=== PATIENT | male | born 1955 | race Caucasian/White ===

== ENCOUNTER 2024-05-02 05:06 | Emergency (ER) | payer OTHER ==
[2024-05-02] MEDS ORDERED: CEFTRIAXONE 1000 MG/VIAL ONE (05:58)
[2024-05-02] MEDS ORDERED: NA CHLORIDE 0.9% 1,000 ML ONE ×2 (05:58→08:27)
[2024-05-02 06:02] LABS: Absolute Lymphocytes (CBC) 0.7 K/uL (0.7-4.9); Absolute Monocytes 0.9 K/uL (0.1-1.3); Absolute Neutrophil 5.1 K/uL (1.8-8.0); Basophils % 0.5 % (0-1.3); Eosinophils % 0.1 % (0-4.4); Hematocrit 31.9 % (39.6-49.0); Hemoglobin 10.4 g/dL (13.6-17.9); Lymphocytes % 9.8 % (15.3-44.8); MCH 29.5 pg (27.0-35.0); MCHC 32.4 g/dL (32.0-36.0); MCV 90.9 fL (80-100); MPV 8.1 fL (7.6-11.3); Monocytes % 13.2 % (3.3-12.3); Neutrophils % 76.4 % (41.7-73.7); Platelets 288 thou/uL (152-406); RBC Red Blood Cell Count 3.51 M/uL (4.33-5.43); Red Cell Distribution Width 17.4 % (12.1-15.2)
[2024-05-02 06:13] LABS: PT Prothrombin Time 11.5 SECONDS (9.4-12.5); PTT, Activated Partial Thromb 32.1 SECONDS (24.3-36.9); Protime INR 1.03
[2024-05-02 06:22] LABS: Specific Gravity 1.011 (1.005-1.030); Sqamous Epithelial None Seen /HPF (None Seen); Urine Bacteria None Seen /HPF (<20); Urine Bilirubin NEGATIVE (Negative); Urine Blood 1+ (Negative); Urine Clarity Clear (Clear); Urine Color Light-Yellow (Yellow); Urine Culture Reflex Order NOT NEEDED; Urine Glucose NEGATIVE (Negative); Urine Ketones 1+ (Negative); Urine Micro Reflex YN NO BILL MICROSCOPIC; Urine Mucus Slight /HPF (None Seen); Urine Nitrite NEGATIVE (Negative); Urine Protein 1+ (Negative); Urine RBC 21-50 /HPF (None Seen); Urine Sperm Present (None Seen); Urine Urobilinogen Normal (Normal); Urine WBC <5 /HPF (<5); Urine pH 8.5 (5.0-7.0)
[2024-05-02 06:56] LABS: Albumin 3.3 g/dL (3.4-5.0); Albumin/Globulin Ratio 0.8 (1.1-1.8); Anion Gap 9.6 mEq/L (5.0-15.0); Bilirubin Total 0.8 mg/dL (0.2-1.0); Globulin 3.9 g/dL (2.3-3.5); Potassium 3.6 mEq/L (3.5-5.1); Protein, Total 7.2 g/dL (6.4-8.2)
[2024-05-02] MEDS ORDERED: NA CHLORIDE 0.9% 250 ML ONE ×2 (07:07→07:46)
[2024-05-02] MEDS ORDERED: PANTOPRAZOLE 40 MG INJ ONE (07:07)
[2024-05-02] MEDS ORDERED: LEVALBUTEROL 1.25 MG/3 ML NEB ONE (07:37)
[2024-05-02] MEDS ORDERED: METHYLPREDNISOLONE 125 MG INJ ONE (07:37)
[2024-05-02] MEDS ORDERED: AZITHROMYCIN 500 MG INJ IVPB ONE (07:46)
--- NOTE | 2024-05-02 07:53 | RAD REPORT ---
EXAM: CT Head Brain Wo Cont HISTORY: AMS COMPARISON: None TECHNIQUE: Multiple contiguous axial images were obtained for a CT of the brain without contrast. Sag ittal and coronal reformats were performed. One or more of the following dose reduction techniques were used: Automated exposure control, adjus tment of the mA and kV according to patient size, and iterative reconstruction. Unless otherwise specified, incidental findings do not require dedicated imaging follow-up. FINDINGS: Mild motion artifact somewhat limits evaluation. No evidence of hydrocephalus, intracranial hemorrhage, or extra-axial fluid collection. The brain is normal in morphology. The calvarium is intact. The visualized paranasal sinuses and mastoid air cells are essentially clear . IMPRESSION: No evidence of acute intracranial abnormality.
--- NOTE | 2024-05-02 08:11 | RAD REPORT ---
EXAMINATION: ONE VIEW CHEST XR CLINICAL INDICATION: Male, 69 years old.,COUGH TECHNIQUE: Frontal chest projection is submitted. Examination is limited by patient positioning and t echnique. COMPARISON: No prior exam. FINDINGS: Right basilar patchy airspace opacity obscuring the right hemidiaphragm margin. No pneumothorax or s izable effusion. The heart is normal in size. Mediastinal contours are unremarkable. IMPRESSION: Right basilar patchy airspace opacity, may reflect atelectasis or pneumonia.
--- NOTE | 2024-05-02 08:11 | RAD REPORT ---
EXAMINATION: CT Abdomen Pelvis W Contrast CLINICAL INDICATION: Male, 69 years old. ABD PAIN TECHNIQUE: CT abdomen and pelvis was performed, after the administration of IV contrast, [facility] Axial, sagittal and coronal reconstructions were obtained. One or more of the following dose reduction techniques were used: Automated exposure control, adjustment of the mA and k V according to patient size, and iterative reconstruction. Unless otherwise specified, incidental findings do not require dedicated imaging follow-up. COMPARISON: No prior exam. FINDINGS: Motion artifact somewhat limits evaluation. LOWER CHEST: Airspace opacification involving most of the dependent right lower lobe with air broncho grams. LIVER: Normal in size and contour. No focal lesion. BILIARY SYSTEM: No suspicious abnormalities. SPLEEN: Normal size. No focal lesion. PANCREAS: No mass, ductal dilation, or yulissa-pancreatic fluid. ADRENALS: Normal; no mass. KIDNEYS: Normal size and contour. No hydronephrosis. URINARY BLADDER: Unremarkable. GASTROINTESTINAL TRACT: Motion artifact especially in the upper abdomen limits evaluation. Mild gaseo us distention of upper abdominal small bowel. No bowel wall thickening. Moderate stool burden in the distal sigmoid and rectum. No evidence of free air, significant intra-abdominal free fluid, bowel obstruction or abscess. APPENDIX: Normal appendix. LYMPH NODES: No lymphadenopathy. MUSCULOSKELETAL: Bilateral hip arthroplasty hardware in place, which results in streak artifact limit ing evaluation of the pelvis. Healing or healed right sixth through ninth rib fractures. No other acute or suspicious osseous abnormality. ADDITIONAL FINDINGS: Mild fusiform aneurysmal dilation of the infrarenal abdominal aorta measuring 3. 2 cm in greatest caliber.. IMPRESSION: Airspace opacification of most of the dependent right lower lobe, may reflect atelectasis or airspace disease. Moderate stool burden in the distal sigmoid and rectum. Healing or healed right sixth through ninth rib fractures, correlate for focal pain. No other acute or concerning abnormalities seen in the abdomen or pelvis. Incidental findings as abov e.
--- NOTE | 2024-05-02 08:18 | ER ---
Nurse's Notes [facility] Name: Marco Mascorro Age: 69 yrs Sex: Male : 1955 Arrival Date: 05/02/2024 Time: 05:06 Bed 20 Private MD: Diagnosis: GI Bleed/ Gastrointestinal hemorrhage, unspecified;Pneumonia, unspecified organism;Altered mental status, unspecified Presentation: 05/02 05:10 Chief complaint: EMS states: the called he notice the patient upon waking up has rg5 symptoms of altered mental status, slower to response than usual. 05:10 Coronavirus screen: Client denies travel out of the [place] in the last 14 days. Ebola rg5 Screen: Patient negative for fever greater than or equal to 101.5 degrees Fahrenheit, and additional compatible Ebola Virus Disease symptoms Patient denies exposure to infectious person. Patient denies travel to an Ebola-affected area in the 21 days before illness onset. Ebola Screen: Patient negative for fever greater than or equal to 101.5 degrees Fahrenheit, and additional compatible Ebola Virus Disease symptoms Patient denies exposure to infectious person. Patient denies travel to an Ebola-affected area in the 21 days before illness onset. No symptoms or risks identified at this time. Initial Sepsis Screen: Does the patient meet any 2 criteria? No. Patient's initial sepsis screen is negative. Does the patient have a suspected source of infection? No. Patient's initial sepsis screen is negative. Risk Assessment: Do you want to hurt yourself or someone else? Patient reports no desire to harm self or others. Onset of symptoms was May 02, 2024. Care prior to arrival: Oxygen administered. via nasal cannula. 05:10 Method Of Arrival: EMS: [facility] rg5 05:10 Acuity: AUGUSTO 3 rg5 Triage Assessment: 05:10 General: Appears in no apparent distress. comfortable, Behavior is calm, cooperative. rg5 Pain: Denies pain. EENT: No deficits noted. Neuro: Level of Consciousness is awake, alert, Oriented to person. Historical: - Allergies: 05:10 No Known Allergies; rg5 - PMHx: 05:10 Chronic obstructive lung disease; rg5 - Immunization history:: Adult Immunizations unknown. - Infectious Disease History:: Denies. - Social history:: Smoking status: unknown. Screenin:[address] [facility] ED Fall Risk Assessment (Adult) History of falling in the last 3 months, rg5 including since admission No falls in past 3 months (0 pts) Confusion or Disorientation Yes (5 pts) Intoxicated or Sedated No (0 pts) Impaired Gait Yes (1 pt) Mobility Assist Device Used Yes (1 pt) Altered Elimination No (0 pt) Score/Fall Risk Level 3 or more points = High Risk Oriented to surroundings, Maintained a safe environment, Used ambulatory aids as needed (educated on \T\ assisted with). Abuse screen: Denies threats or abuse. Nutritional screening: No deficits noted. Tuberculosis screening: No symptoms or risk factors identified. Assessment: 05:10 General: Appears uncomfortable, Behavior is calm, cooperative. Pain: Denies pain. rg5 Neuro: Level of Consciousness is awake, alert, confused, Oriented to person, place. Cardiovascular: Heart tones S1 S2 Patient's skin is warm and dry. Rhythm is sinus rhythm with unifocal PVCs. Respiratory: Reports shortness of breath cough that is productive, Airway is patent Trachea midline Respiratory effort is even, Respiratory pattern is regular, symmetrical, Breath sounds are clear bilaterally. GI: Abdomen is round non-distended, Abd is soft and non tender. : No signs and/or symptoms were reported regarding the genitourinary system. EENT: No deficits noted. Derm: Skin is fragile, Skin is dry, Skin is normal. Musculoskeletal: Circulation, motion, and sensation intact. Range of motion:. 07:20 Reassessment: Patient appears in no apparent distress at this time. Patient and/or db family updated on plan of care and expected duration. Pain level reassessed. PATIENT RETURNED FROM CT. APPEARS ANXIOUS AND CONFUSED TRYING TO GET OUT OF BED. IS EASILY REDIRECTABLE. 08:01 General: Appears in no apparent distress. uncomfortable, Behavior is cooperative, db restless. Neuro: Level of Consciousness is awake, alert, obeys commands, confused, Oriented to person. 08:22 Reassessment: PT ATTEMPTING TO GET OUT OF BED. db 09:00 Derm: Rash noted that is on right leg and left leg. db 09:33 Reassessment: Patient and/or family updated on plan of care and expected duration. Pain db level reassessed. PT INCONTINENT OF STOOL AND INCONTINENT OF URINE. CHANGED PATIENT BRIEF, BED AND CLEANED PT. NOTED DARK SOFT STOOLS AND CLEAR URINE. 09:45 Reassessment: PT ATTEMPTED TO GET OUT OF BED. ASSISTED PT BACK IN BED. db 09:46 Reassessment: CALLED [facility] TO GIVE PT REPORT. db 09:51 Reassessment: REPORT GIVEN TO GLO AT [facility]. db 10:00 Reassessment: PATIENT ATTEMPTING TO GET OUT OF BED. STAFF AT BEDSIDE. db 10:15 Reassessment: Patient appears in no apparent distress at this time. Patient and/or db family updated on plan of care and expected duration. Pain level reassessed. EMS ARRIVAL FOR PATIENT TRANSPORT. 10:32 Reassessment: EMS ARRIVAL FOR PATIENT TRANSPORT. db 10:33 Reassessment: NOTED STOOL PRIOR TO TRANSPORT. PATIENT BRIEF CHANGED AND PATIENT CLEANED db PRIOR TO TRANSPORT. Vital Signs: 05:10 BP 151 / 116; Pulse 89; Resp 19; Temp 98.2(T); Pulse Ox 99% on 3 lpm NC; Weight 71.21 rg5 kg; Height 5 ft. 8 in. ; Pain 0/10; 06:05 BP 132 / 82; Pulse 94; Resp 19; Pulse Ox 100% on 3 lpm NC; Pain 0/10; rg5 07:20 BP 157 / 97; Pulse 103; Resp 18; Pulse Ox 96% on 2 lpm NC; db 08:05 BP 159 / 98; Pulse 127; Resp 24; Pulse Ox 96% on 2 lpm NC; db 09:15 Pulse 105; rn 09:39 BP 148 / 84; Pulse 101; Resp 24; Temp 97.8; Pulse Ox 97% on 2 lpm NC; db 10:00 BP 139 / 84; Pulse 103; Resp 16; Pulse Ox 100% on R/A; db 05:10 Body Mass Index 23.87 (71.21 kg, 172.72 cm) rg5 05:10 Pain Scale: Adult rg5 06:05 Pain Scale: Adult rg5 Berkley Coma Score: 07:20 Eye Response: spontaneous(4). Motor Response: obeys commands(6). Verbal Response: db confused(4). Total: 14. ED Course: 05:07 Patient arrived in ED. jj6 05:07 Ryley Maciel MD is Attending Physician. ec2 05:10 Arm band placed on right wrist. EKG completed in triage. Results shown to MD. rg5 05:10 Patient has correct armband on for positive identification. Fall risk band placed. rg5 Placed in gown. Bed in low position. Call light in reach. Side rails up X2. Client placed on continuous cardiac and pulse oximetry monitoring. NIBP monitoring applied. monitor tech on. Pulse ox on. Door closed. Noise minimized. Warm blanket given. Cleaned of incontinence. Linen changed. 05:10 No provider procedures requiring assistance completed. rg5 05:27 Ehsan Nunez, GAUDENCIO is Primary Nurse. rg5 05:30 First set of blood cultures drawn by me. oe 05:36 Chest Single View XRAY In Process Unspecified. EDMS 05:36 Triage completed. rg5 05:49 Second set of blood cultures drawn by me. oe 05:53 Inserted saline lock: 22 gauge in right forearm, using aseptic technique. Blood oe collected. Flushed with 10 mL NS. 05:57 AMMONIA Sent. oe 05:57 Type And Screen Sent. oe 05:58 Blood Culture Adult (2) Sent. oe 05:58 CBC with Diff Sent. oe 05:58 CMP Sent. oe 05:58 Lactate w/ 2H reflex if indic. Sent. oe 05:58 Protime (+inr) Sent. oe 05:58 Ptt, Activated Sent. oe 07:01 Attending Physician role handed off by Ryley Maciel MD rn 07:01 Juan Brambila MD is Attending Physician. rn 07:[address] via stretcher. db 07:16 CT Abd/Pelvis - IV Contrast Only In Process Unspecified. EDMS 07:16 CT Head Brain wo Cont In Process Unspecified. EDMS 07:56 Inserted saline lock: 22 gauge in left wrist, using aseptic technique. Flushed with 10 iw mL NS. 08:19 called [facility] for transfer talked to Augusto zambrano 09:04 Doc to Doc. sp 09:[address] Yee Green accepted pt to [facility] 0907 admin approval Augusto zambrano Room 733 report number [phone]. faxed demographics to Transfer Center. 10:35 Provided Education on: TRANSFER. db 10:35 Patient transferred, IV remains in place. db Administered Medications: 05:13 CANCELLED (Physician Discretion): [id number] mg PO once ec2 05:13 CANCELLED (Physician Discretion): [id number] mg PO once ec2 05:13 CANCELLED (Physician Discretion): [id number] mg IM once ec2 05:13 CANCELLED (Physician Discretion): [id number] mg PO once ec2 06:00 Drug: Rocephin IV 1 grams IV at calculated rate once; Given slow IV push per pharmacy rg5 instructions Route: IV; Rate: calculated rate; Site: right forearm; 10:38 Follow up: Response: No adverse reaction; IV Status: Completed infusion db 06:00 Drug: NS 0.9% IV 1000 ml IV at 1 bolus Per protocol; to be given as a bolus over 60 rg5 minutes Route: IV; Rate: 1 bolus; Site: right forearm; 07:00 Follow up: IV Status: Completed infusion; IV Intake: 1000ml rg5 07:36 Drug: Pantoprazole IVP 40 mg IVP once Route: IVP; Site: right wrist; db 10:38 Follow up: Response: No adverse reaction db 07:36 Drug: Pantoprazole IV 8 mg/hr IV at 25 ml/hr continuous; (Standard dilution is 80 mg in db 250 mL NS) Route: IV; Rate: 25 ml/hr; Site: right wrist; 10:38 Follow up: Response: No adverse reaction; IV Status: Infusion continued upon transfer db 07:45 Drug: Levalbuterol Inhalation 1.25 mg Inhalation once Route: Inhalation; db 07:45 Drug: Levalbuterol Inhalation 1.25 mg Inhalation once Route: Inhalation; db 07:55 Drug: Zithromax IVPB 500 mg IVPB once over 1 hrs; mix in 250 mL NS Route: IVPB; Infused db Over: 1 hrs; Site: left forearm; 08:55 Follow up: Response: No adverse reaction; IV Status: Completed infusion; IV Intake: db 250ml 07:56 Not Given (Duplicate Order): [id number] grams IV at calculated rate once; Given slow IV db push per pharmacy instructions 07:56 Drug: MethylPrednisoLONE IVP 125 mg IVP once Route: IVP; Site: right forearm; db 10:37 Follow up: Response: No adverse reaction db 10:37 Follow up: Response: No adverse reaction db 08:33 Drug: NS 0.9% IV 1000 ml IV at 1000 ml once; to be given as a bolus over 60 minutes db Route: IV; Rate: 1000 ml; Site: right forearm; 10:36 Follow up: Response: No adverse reaction; IV Status: Completed infusion; IV Intake: db 1000ml 10:32 Drug: Ipratropium Inhalation Aerosol 0.5 mg Inhalation once Route: Inhalation; db Medication: 05:10 VIS not applicable for this client. rg5 Intake: 07:00 IV: 1000ml; Total: 1000ml. rg5 08:55 IV: 250ml; Total: 1250ml. db 10:36 IV: 1000ml; Total: 2250ml. db Outcome: 08:18 ER care complete, transfer ordered by . rn 10:35 Transferred by ground EMS to [facility], [facility] [place], Transfer form completed. db X-rays sent w/ patient. 10:35 Condition: stable 10:35 Instructed on the need for transfer, 10:52 Patient left the ED. db Signatures: Dispatcher [employer] EDMS Bre Lassiter Irene RN GAUDENCIO iw Juan Brambila MD MD rn Espinosa, Orlando oe Jeffries, Jennifer [id number] Kelsey Pollock RN RN db Corral, Edwin, MD MD ec2 Ehsan Nunez, GAUDENCIO RN rg5 Corrections: (The following items were deleted from the chart) 08:02 07:20 Reassessment: Patient appears in no apparent distress at this time. Patient db and/or family updated on plan of care and expected duration. Pain level reassessed. PATIENT RETURNED FROM CT. APPEARS ANXIOUS AND CONFUSED TRYING TO GET OUT OF BED. IS EASILY REDIRECTABLE. db
--- NOTE | 2024-05-02 08:19 | EDPHYS ---
Physician Documentation [facility] Name: Marco Mascorro Age: 69 yrs Sex: Male : 1955 Arrival Date: 05/02/2024 Time: 05:06 Bed 20 Private MD: ED Physician Juan Brambila HPI: 05/02 05:18 This 69 yrs old Male presents to ER via Unassigned with complaints of Altered ec2 Mental Status. 05:18 Patient arrives today for evaluation of altered mental status. Patient arrives from 2 home. EMS reports that on scene had noted patient be increasingly altered. No recent falls injuries or trauma. Patient with history of COPD on baseline oxygen requirement.. Historical: - Allergies: 05:10 No Known Allergies; rg5 - PMHx: 05:10 Chronic obstructive lung disease; rg5 - Immunization history:: Adult Immunizations unknown. - Infectious Disease History:: Denies. - Social history:: Smoking status: unknown. ROS: 05:18 Constitutional: as per hpi ec2 Exam: 05:18 Constitutional: GEN: NAD Head: atraumatic Eyes: EOMI Ears: External ears are ec2 normal. CV: regular rate LUNGS: no respiratory distress ABD: non-distended, soft, not guarding, slightly tenderSKIN: no evidence of rashes MSK: no evidence of trauma Vital Signs: 05:10 BP 151 / 116; Pulse 89; Resp 19; Temp 98.2(T); Pulse Ox 99% on 3 lpm NC; Weight 71.21 rg5 kg; Height 5 ft. 8 in. ; Pain 0/10; 06:05 BP 132 / 82; Pulse 94; Resp 19; Pulse Ox 100% on 3 lpm NC; Pain 0/10; rg5 07:20 BP 157 / 97; Pulse 103; Resp 18; Pulse Ox 96% on 2 lpm NC; db 08:05 BP 159 / 98; Pulse 127; Resp 24; Pulse Ox 96% on 2 lpm NC; db 09:15 Pulse 105; rn 09:39 BP 148 / 84; Pulse 101; Resp 24; Temp 97.8; Pulse Ox 97% on 2 lpm NC; db 10:00 BP 139 / 84; Pulse 103; Resp 16; Pulse Ox 100% on R/A; db 05:10 Body Mass Index 23.87 (71.21 kg, 172.72 cm) rg5 05:10 Pain Scale: Adult rg5 06:05 Pain Scale: Adult rg5 [place] Coma Score: 07:20 Eye Response: spontaneous(4). Motor Response: obeys commands(6). Verbal Response: db confused(4). Total: 14. MDM: 05:07 Medical Screening Exam initiated ec2 05:18 Data reviewed: vital signs, nurses notes. ED course: Patient arrives today for altered ec2 mental status. Examination yields nontoxic cooperative individual is otherwise in no acute distress. Will obtain lab test, urine studies, chest x-ray.. 06:49 ED course: The patient noted to have black melanic stool on rectal examination.. ec2 06:50 ED course: Will sign patient out to oncoming physician with pending imaging and ec2 reassessment.. 06:50 Transition of care: After a detail discussion of the patient's case, care is ec2 transferred to Juan Brambila MD. 07:01 Differential Diagnosis altered mental status, GI bleed, anemia, dehydration, rn electrolyte disorder. Differential Diagnosis: CVA, electrolyte abnormality, hypoglycemia, intracranial bleed, UTI, volume depletion. ED course: Pt signed out to me by Dr. Maciel, pending CT head and abd/pelvis for AMS. States patient has melena and GI bleed. Protonix added. Imaging pending. No GI here, anticipate transfer. . 08:17 Counseling: I had a detailed discussion with the patient and/or guardian regarding the rn historical points, exam findings, and any diagnostic results supporting the discharge/admit diagnosis, lab results, radiology results, the need to transfer to another facility, for higher level of care, [facility] does not immediately have the required specialist. 08:31 ED course: Patient has had 2 melanotic stools while here. Chest x-ray and CT imaging rn reveals right lower lobe infiltrate per my interpretation. Antibiotics ordered after sepsis order set obtained. Started on Protonix and fluids. Will transfer given no GI here. 08:32 ED course: I personally spent 35 minutes engaged in work directly related to the rn individual patient's care. This does not include any time spent performing procedures. The patient has been deemed critically ill because of management of GI bleed in setting of pneumonia and COPD, abnormal vital signs requiring fluid resuscitation, respiratory distress requiring nebulizer treatments and IV steroids, as well as organization of transfer.. 05/02 05:08 Order name: Blood Culture Adult (2) ec2 05/02 05:08 Order name: CBC with Diff; Complete Time: 06:05 ec2 05/02 05:08 Order name: CMP; Complete Time: 06:57 ec2 05/02 05:08 Order name: Lactate w/ 2H reflex if indic.; Complete Time: 06:22 ec2 05/02 05:08 Order name: Protime (+inr); Complete Time: 06:20 ec2 05/02 05:08 Order name: Ptt, Activated; Complete Time: 06:20 ec2 05/02 05:35 Order name: Type And Screen; Complete Time: 06:45 ec2 05/02 05:35 Order name: AMMONIA; Complete Time: 06:20 ec2 05/02 06:00 Order name: UAM; Complete Time: 06:28 ec2 05/02 06:15 Order name: Glucose, Ancillary Testing; Complete Time: 06:20 EDMS 05/02 05:08 Order name: Chest Single View XRAY; Complete Time: 08:16 ec2 05/02 05:36 Order name: CT Abd/Pelvis - IV Contrast Only; Complete Time: 08:16 ec2 05/02 06:13 Order name: CT Head Brain wo Cont; Complete Time: 08:16 ec2 05/02 05:08 Order name: Accucheck; Complete Time: 06:05 ec2 05/02 05:08 Order name: Cardiac monitoring; Complete Time: 06:05 ec2 05/02 05:08 Order name: EKG - Nurse/Tech; Complete Time: 06:05 ec2 05/02 05:08 Order name: IV Saline Lock - Large Bore; Complete Time: 05:57 ec2 05/02 05:08 Order name: Labs collected and sent; Complete Time: 05:58 ec2 05/02 05:08 Order name: O2 Per Protocol; Complete Time: 06:05 ec2 05/02 05:08 Order name: O2 Sat Monitoring; Complete Time: 06:05 ec2 05/02 05:08 Order name: Vital Signs; Complete Time: 06:05 ec2 Administered Medications: 05:13 CANCELLED (Physician Discretion): [id number] mg PO once ec2 05:13 CANCELLED (Physician Discretion): [id number] mg PO once ec2 05:13 CANCELLED (Physician Discretion): [id number] mg IM once ec2 05:13 CANCELLED (Physician Discretion): [id number] mg PO once ec2 06:00 Drug: Rocephin IV 1 grams IV at calculated rate once; Given slow IV push per pharmacy rg5 instructions Route: IV; Rate: calculated rate; Site: right forearm; 10:38 Follow up: Response: No adverse reaction; IV Status: Completed infusion db 06:00 Drug: NS 0.9% IV 1000 ml IV at 1 bolus Per protocol; to be given as a bolus over 60 rg5 minutes Route: IV; Rate: 1 bolus; Site: right forearm; 07:00 Follow up: IV Status: Completed infusion; IV Intake: 1000ml rg5 07:36 Drug: Pantoprazole IVP 40 mg IVP once Route: IVP; Site: right wrist; db 10:38 Follow up: Response: No adverse reaction db 07:36 Drug: Pantoprazole IV 8 mg/hr IV at 25 ml/hr continuous; (Standard dilution is 80 mg in db 250 mL NS) Route: IV; Rate: 25 ml/hr; Site: right wrist; 10:38 Follow up: Response: No adverse reaction; IV Status: Infusion continued upon transfer db 07:45 Drug: Levalbuterol Inhalation 1.25 mg Inhalation once Route: Inhalation; db 07:45 Drug: Levalbuterol Inhalation 1.25 mg Inhalation once Route: Inhalation; db 07:55 Drug: Zithromax IVPB 500 mg IVPB once over 1 hrs; mix in 250 mL NS Route: IVPB; Infused db Over: 1 hrs; Site: left forearm; 08:55 Follow up: Response: No adverse reaction; IV Status: Completed infusion; IV Intake: db 250ml 07:56 Not Given (Duplicate Order): [email or web address] grams IV at calculated rate once; Given slow IV db push per pharmacy instructions 07:56 Drug: MethylPrednisoLONE IVP 125 mg IVP once Route: IVP; Site: right forearm; db 10:37 Follow up: Response: No adverse reaction db 10:37 Follow up: Response: No adverse reaction db 08:33 Drug: NS 0.9% IV 1000 ml IV at 1000 ml once; to be given as a bolus over 60 minutes db Route: IV; Rate: 1000 ml; Site: right forearm; 10:36 Follow up: Response: No adverse reaction; IV Status: Completed infusion; IV Intake: db 1000ml 10:32 Drug: Ipratropium Inhalation Aerosol 0.5 mg Inhalation once Route: Inhalation; db Disposition: 08:32 Critical Care:. rn Disposition Summary: 05/02/24 08:18 Transfer Ordered Notes: Transfer Location: Other [facility] rn Reason: Higher level of care rn Condition: Stable rn Problem: new rn Symptoms: are unchanged rn Accepting Physician: (05/02/24 10:52) db Diagnosis - GI Bleed/ Gastrointestinal hemorrhage, unspecified rn - Pneumonia, unspecified organism rn - Altered mental status, unspecified rn Forms: - Medication Reconciliation Form rn - SBAR form consultant internship time excluding procedures: 08:32 Critical care time: Bedside Care: 35 minutes. Total time: 35 minutes rn Signatures: Dispatcher [employer] EDMS Juan Brambila MD MD rn Benton, Danielle, RN RN db Corral, Edwin, MD MD ec2 Ehsan Nunez RN RN rg5 Corrections: (The following items were deleted from the chart) 05:09 05:08 BLOOD CULTURE*+BA.LAB.BRZ ordered. EDMS EDMS 05:09 05:08 CBC+H.LAB.BRZ ordered. EDMS EDMS 05:09 05:08 COMPREHENSIVE METABOLIC PANEL+C.LAB.BRZ ordered. EDMS EDMS 05:09 05:08 LACTATE+C.LAB.BRZ ordered. EDMS EDMS 05:09 05:08 PROTIME (+INR)+COAG.LAB.BRZ ordered. EDMS EDMS 05:09 05:08 PTT, ACTIVATED+COAG.LAB.BRZ ordered. EDMS EDMS 05:09 05:09 Chest Single View+RAD.RAD.BRZ ordered. EDMS EDMS 05:13 05:13 Acetaminophen PO 1000 mg PO once ordered. ec2 ec2 05:13 05:13 Methocarbamol PO 750 mg PO once ordered. ec2 ec2 05:13 05:13 Ketorolac IM 30 mg IM once ordered. ec2 ec2 05:13 05:13 predniSONE PO 40 mg PO once ordered. ec2 ec2 05:13 05:13 Arnoldo wrap-joint ordered. ec2 ec2 05:35 05:35 TYPE AND SCREEN+BB.LAB.BRZ ordered. EDMS EDMS 05:35 05:35 AMMONIA+C.LAB.BRZ ordered. EDMS EDMS 05:36 05:13 Knee Right 3 View+RAD.RAD.BRZ ordered. EDMS EDMS 05:36 05:36 Abdomen Pelvis W Con+CT.RAD.BRZ ordered. EDMS EDMS 05:36 05:18 Constitutional: GEN: NAD Head: atraumatic Eyes: EOMI Ears: External ears are ec2 normal. CV: regular rate LUNGS: no respiratory distress ABD: non-distended, soft, nontender, guarding, not rigid SKIN: no evidence of rashes MSK: no evidence of trauma ec2 07:00 05:17 Hendricks ordered. ec2 rg5 10:52 08:18 Dr. granda db
[2024-05-02] MEDS ORDERED: NA CHLORIDE 0.9% 500 ML ONE (09:10)
[2024-05-02] MEDS ORDERED: IPRATROPIUM BROM 0.5MG/2.5ML ONE (10:30)
[2024-05-04 16:00] VITALS: BP 139/84; TEMP 97.8; O2SAT 100
--- NOTE | 2024-05-06 12:12 | EKG ---
Test Date: 2024-05-02 Test Time: 05:54:25 Energy Conservation Technician: SONY MEASUREMENT RESULTS: Intervals: Rate: 98 UT: 168 QRSD: 104 QT: 396 QTc: 505 [place]: P: 68 UT: 168 QRS: 53 T: 81 INTERPRETIVE STATEMENTS: Sinus rhythm with premature supraventricular complexes with occasional premature ventricular complexes Prolonged QT Abnormal ECG No previous ECG available for comparison Electronically Signed On 05-06-24 12:08:57 RADAR SCIENTIST by Oziel Mortensen
== END 2024-05-02 10:52 | disposition short-term general hospital (02) ==
LOC: ER 05:06 → EDBD 05:06 → ER 10:52
DX: K92.2 Gastrointestinal hemorrhage, unspecified (principal); J18.9 Pneumonia, unspecified organism; R41.82 Altered mental status, unspecified; J44.9 Chronic obstructive pulmonary disease, unspecified
CPT/HCPCS: 93005; 87040 ×2; 85025; 81001; 36415; 82140; 86900; 86850; 85610; 86901; 82947; 83605; 85730; 80053; 70450; 74177; 71045; 99285; Q9967; J7614; J7644; J2470; J2919; J7050 ×2; J7040; J7030 ×2; J0696

== ENCOUNTER 2024-05-13 10:05 | Inpatient (IN) | payer OTHER ==
[2024-05-13] MEDS ORDERED: MORPHINE 4 MG/ML SYR ONE (10:16)
--- NOTE | 2024-05-13 11:08 | RAD REPORT ---
EXAMINATION: CT HEAD WITHOUT CONTRAST CT CERVICAL SPINE WITHOUT CONTRAST CLINICAL INDICATION: Head and neck injury status post fall. Head and neck pain TECHNIQUE: Axial CT images from the skull base to the vertex without intravenous contrast. Axial CT i mages through the cervical spine were obtained without intravenous contrast. Sagittal and coronal reformatted images were created from the data set. Coronal and sagittal reformatted images were creat ed from the data set. One or more of the following dose reduction techniques were used: Automated exposure control, adjustment of the mA and/or kV according to patient size, and/or iterative reconstr uction. Unless otherwise specified, incidental findings do not require dedicated imaging follow-up. [id number]. Comparison: May 03, [address] FINDINGS: An intracranial bleed is not seen. Ventricles are normal in caliber. No significant hypodensity within the brain No extra-axial fluid collection. No fluid within the sinuses/mastoids No fracture or dislocation is seen involving the cervical spine. Mild to moderate anterior subluxation C3 on C4. Significant soft tissue swelling not seen. Although t his is probably chronic this cannot be said with certainty adenosis prior exams are not available for comparison. IMPRESSION: No acute intracranial abnormality noted A cervical fracture is not seen. Mild to moderate anterior subluxation C3 on C4. Significant soft tissue swelling not seen. If the patient has clinical symptoms to suggest an acute ligamentous injury of the upper cervical spi ne MRI would be recommended.
--- NOTE | 2024-05-13 11:08 | RAD REPORT ---
EXAM: CT CHEST, ABDOMEN AND PELVIS WITHOUT CONTRAST CLINICAL INDICATION: Chest and abdominal pain status post fall TECHNIQUE: CT chest, abdomen and pelvis was performed, without IV contrast, as per department protoco l. Axial, sagittal and coronal reconstructions were obtained. One or more of the following dose reduction techniques were used: Automated exposure control, adjustment of the mA and/or kV according to the patient size, and/or iterative reconstruction. Unless otherwise specified, incidental findings do not require dedicated imaging follow-up. The lack of IV and oral contrast limits evaluation of the mediastinum, ratna, vessels, organs and dipti l. COMPARISON: May 02, 2024 CT abdomen FINDINGS: Fractures involving the left third through 10th ribs. Most of the fractures are mildly displaced. No pneumothorax Small left pleural effusion. No pulmonary contusion. No mediastinal hematoma. Right lower lobe consolidation was partially imaged on the prior CT. It is moderate in size. Mild rig ht upper lobe opacities. These probably represent pneumonia. Multiple subacute right rib fractures again demonstrated. Liver, spleen, pancreas, adrenals kidneys and bladder do not demonstrate a acute traumatic injury. Artifact from bilateral hip prosthesis obscures evaluation of portions of the pelvis. There is no evidence of diverticulitis 3.2 cm abdominal aortic aneurysm unchanged. Follow-up imaging in 3 years recommended. Right inguinal hernia repair Hepatic and splenic granulomata IMPRESSION: Mostly mildly displaced fractures involving the left third through 10th ribs. Right lung pneumonia. This should be followed until has cleared to help exclude a postobstructive pro cess/underlying mass
[2024-05-13] MEDS ORDERED: Levofloxacin 750mg IV 750 MG/150 ML BAG IV ONE (12:40)
[2024-05-13 12:44] LABS: Absolute Lymphocytes (CBC) 0.2 K/uL (0.7-4.9); Absolute Monocytes 0.7 K/uL (0.1-1.3); Absolute Neutrophil 5.5 K/uL (1.8-8.0); Basophils % 0.1 % (0-1.3); Hematocrit 30.8 % (39.6-49.0); Hemoglobin 10.2 g/dL (13.6-17.9); Lymphocytes % 3.3 % (15.3-44.8); MCH 30.4 pg (27.0-35.0); MCHC 33.1 g/dL (32.0-36.0); MCV 91.6 fL (80-100); MPV 8.1 fL (7.6-11.3); Monocytes % 10.7 % (3.3-12.3); Neutrophils % 85.9 % (41.7-73.7); Platelets 158 thou/uL (152-406); RBC Red Blood Cell Count 3.36 M/uL (4.33-5.43); Red Cell Distribution Width 16.5 % (12.1-15.2)
[2024-05-13 12:47] LABS: PT Prothrombin Time 10.3 SECONDS (9.4-12.5); PTT, Activated Partial Thromb 30.4 SECONDS (24.3-36.9); Protime INR 0.98
[2024-05-13 12:52] LABS: Albumin 3.1 g/dL (3.4-5.0); Albumin/Globulin Ratio 0.9 (1.1-1.8); Anion Gap 4.4 mEq/L (5.0-15.0); Bilirubin Total 0.3 mg/dL (0.2-1.0); Globulin 3.5 g/dL (2.3-3.5); Potassium 4.4 mEq/L (3.5-5.1); Protein, Total 6.6 g/dL (6.4-8.2)
[2024-05-13 13:21] LABS: Blood Morphology Comment NOT SEEN (NOT SEEN); Platelet Estimate ADEQ; White Blood Cell Scan OK (OK)
--- NOTE | 2024-05-13 13:44 | P.HP ---
Certification for Inpatient Patient admitted to: Observation With expected LOS: <2 Midnights Practitioner: I am a practitioner with admitting privileges, knowledge of patient current condition, hospital course, and medical plan of care. Services: Services provided to patient in accordance with Admission requirements found in Title 42 Section 412.3 of the Code of Federal Regulations Patient History Date of Service: 05/13/24 Reason for admission: Multiple rib fractures, right sided PNA History of Present Illness: Marco Mascorro is a 69 year old male with Pmhx COPD on 4-5 LNC who reports tripping over his walker falling on his left side. On evaluation, Marco is extremely uncomfortable, requesting pain medication for his left rib fractures, Vital signs stable, on 3 LNC, gurgling lung sounds. CT CAP reports mildly displaced fractures to left third through tenth ribs. Laboratory evaluation significant for sodium 131, bicarb 35, serum glucose 108 Initial vitals BP 138 / 70; Pulse 90; Resp 14; Temp 98.2; Pulse Ox 96% on [address] CAP reports "Mostly mildly displaced fractures involving the left third through 10th ribs. Right lung pneumonia. This should be followed until has cleared to help exclude a postobstructive process/underlying mass, Small left pleural effusion." CT head/cervical spine reports "No acute intracranial abnormality noted. A cervical fracture is not seen. Mild to moderate anterior subluxation C3 on C4. Significant soft tissue swelling not seen." Marco will be admitted to hospitalist service for further evaluation and treatment, Dr. Albarado consulted. Allergies No Known Allergies Allergy (Unverified 05/13/24 17:59) - Past Medical/Surgical History -: COPD Past Surgical History: Unable to obtain - Family History Family History: Reviewed- Non-Contributory - Social History Smoking Status: Current some day smoker Alcohol use: No CD- Drugs: No Review of Systems Musculoskeletal: Other (left ribs) Physical Examination - Physical Exam General: Alert, Oriented x3, Other (uncomfortable) HEENT: Atraumatic, Normocephalic Neck: Supple, 2+ carotid pulse no bruit Respiratory: Clear to auscultation bilaterally, Normal air movement Cardiovascular: Normal pulses, Regular rate/rhythm, Normal S1 S2 Capillary refill: <2 Seconds Gastrointestinal: Normal bowel sounds, Soft and benign Musculoskeletal: No clubbing Integumentary: No rashes Neurological: Normal speech, Normal tone - Studies Laboratory Data (last 24 hrs) 05/13/24 05/13/24 05/13/24 12:20 12:20 12:20 WBC 6.40 Hgb 10.2 L Hct 30.8 L Plt Count 158 PT 10.3 INR 0.98 APTT 30.4 Sodium 131 L Potassium 4.4 BUN 12 Creatinine 0.41 L Glucose 108 H Total Bilirubin 0.3 AST 29 ALT 21 Alkaline Phosphatase 83 Assessment and Plan - Plan Assessment and Plan Trauma mechanical fall Left rib fracture 3-10 Right sided pneumonia Small left pleural effusion -CT CAP reports "Mostly mildly displaced fractures involving the left third through 10th ribs. Right lung pneumonia. This should be followed until has cleared to help exclude a postobstructive process/underlying mass, Small left pleural effusion." -CT head/cervical spine reports "No acute intracranial abnormality noted. A cervical fracture is not seen. Mild to moderate anterior subluxation C3 on C4. Significant soft tissue swelling not seen." - pain control -supportive care -Dr. Albarado consulted -levaquin daily -Lasix x 1 Hyponatremic -NA 131 -Lasix x1, monitor in AM labs COPD -continue home medications -Duonebs -Oxygen protocol in place 3.2 abdominal aortic aneurysm Right inguinal hernia -Findings on CT CAP -reports aneurysm unchanged DVT ppx SCD full code LOS 2-3 days Discharge Plan: Home Plan to discharge in: 48 Hours - Advance Directives Does patient have a Living Will: No Does patient have a Durable POA for Healthcare: No
--- NOTE | 2024-05-13 13:46 | EDPHYS ---
Physician Documentation [facility] Name: Marco Mascorro Age: 69 yrs Sex: Male : 1955 Arrival Date: 05/13/2024 Time: 10:05 Bed 16 Private MD: ED Physician Dejuan Marshall HPI: 05/13 14:42 This 69 yrs old Male presents to ER via EMS with complaints of Fall Injury. rt 14:42 Patient presents to the ED with mechanical fall. Patient tripped on his walker causing rt to fall hitting the left side of his ribs. Reports pain to that area. Denies hitting his head or loss of consciousness. The patient reports having a cough, shortness of breath for the past few days. Denies other acute complaints at this time, symptoms are moderate in severity, no other aggravating or alleviating factors.. Historical: - Allergies: 10:13 No Known Allergies; bp - PMHx: 10:13 Chronic obstructive lung disease; bp - Immunization history:: Adult Immunizations up to date. - Infectious Disease History:: Denies. - Social history:: Smoking status: unknown. - Family history:: not pertinent. ROS: 14:42 Constitutional: Negative for fever, chills, and weight loss, Abdomen/GI: Negative for rt abdominal pain, nausea, vomiting, diarrhea, and constipation, MS/Extremity: Negative for injury and deformity, Skin: Negative for injury, rash, and discoloration, Neuro: Negative for headache, weakness, numbness, tingling, and seizure, 14:42 Cardiovascular: Positive for chest pain, Negative for edema, 14:42 Respiratory: Positive for cough, shortness of breath, Exam: 14:42 Constitutional: This is a well developed, well nourished patient who is awake, alert, rt and in no acute distress. Head/Face: Normocephalic, atraumatic. Cardiovascular: Regular rate and rhythm with a normal S1 and S2. No gallops, murmurs, or rubs. Normal PMI, no JVD. No pulse deficits. Respiratory: Lungs have equal breath sounds bilaterally, clear to auscultation and percussion. No rales, rhonchi or wheezes noted. No increased work of breathing, no retractions or nasal flaring. Abdomen/GI: Soft, non-tender, with normal bowel sounds. No distension or tympany. No guarding or rebound. No evidence of tenderness throughout. Skin: Warm, dry with normal turgor. Normal color with no rashes, no lesions, and no evidence of cellulitis. MS/ Extremity: Pulses equal, no cyanosis. Neurovascular intact. Full, normal range of motion. Neuro: Awake and alert, GCS 15, oriented to person, place, time, and situation. Cranial nerves II-XII grossly intact. Motor strength 5/5 in all extremities. Sensory grossly intact. Cerebellar exam normal. Normal gait. 14:42 Chest/axilla: Tenderness over the left lateral rib margins, no crepitus felt. 14:42 ECG was reviewed by the Attending Physician. Vital Signs: 10:12 BP 138 / 70; Pulse 90; Resp 14; Temp 98.2; Pulse Ox 96% on 3 lpm NC; bp 13:10 BP 156 / 92; Pulse 94; Resp 16; Pulse Ox 94% ; bp 17:00 BP 155 / 89; Pulse 85; Resp 18; Temp 98.5; Pulse Ox 95% on 2 lpm NC; bp MDM: 10:10 Medical Screening Exam initiated rt 14:42 Differential Diagnosis Rib fractures, rib contusion, pneumonia, pulmonary contusion. rt Data reviewed: vital signs, nurses notes, lab test result(s), EKG, radiologic studies. Consideration of Admission/Observation Patient was admitted/placed on observation. Management of patient was discussed with the following: Hospitalist: Agrees to admit. I considered the following discharge prescriptions or medication management in the emergency department Medications were administered in the Emergency Department. See MAR. Independent interpretation of the following test(s) in the Emergency Department CT Scan: My interpretation is Consolidation seen on interpretation of CT scan images. Test considered but Not performed: X-ray: CTs obtained, x-rays are redundant. Care significantly affected by the following chronic conditions: Chronic Obstructive Pulmonary Disease. Counseling: I had a detailed discussion with the patient and/or guardian regarding the historical points, exam findings, and any diagnostic results supporting the discharge/admit diagnosis, lab results, radiology results, the need for further work-up and treatment in the hospital. Response to treatment: the patient's symptoms have mildly improved after treatment. 05/13 11:31 Order name: Blood Culture Adult (2) rt 05/13 11:31 Order name: CBC with Diff; Complete Time: 13:39 rt 05/13 11:31 Order name: CMP; Complete Time: 13:05 rt 05/13 11:31 Order name: Lactate w/ 2H reflex if indic.; Complete Time: 13:05 rt 05/13 11:31 Order name: Protime (+inr); Complete Time: 13:05 rt 05/13 11:31 Order name: Ptt, Activated; Complete Time: 13:05 rt 05/13 13:22 Order name: CBC Smear Scan; Complete Time: 13:39 EDMS 05/13 15:09 Order name: Urinalysis w/ reflexes EDMS 05/13 15:09 Order name: Basic Metabolic Panel EDMS 05/13 15:09 Order name: Basic Metabolic Panel EDMS 05/13 15:09 Order name: Basic Metabolic Panel EDMS 05/13 15:09 Order name: Basic Metabolic Panel EDMS 05/13 15:09 Order name: Basic Metabolic Panel EDMS 05/13 15:09 Order name: Basic Metabolic Panel EDMS 05/13 15:09 Order name: Basic Metabolic Panel EDMS 05/13 15:09 Order name: Basic Metabolic Panel EDMS 05/13 15:09 Order name: CBC with Automated Diff EDMS 05/13 15:09 Order name: CBC with Automated Diff EDMS 05/13 15:09 Order name: CBC with Automated Diff EDMS 05/13 15:09 Order name: CBC with Automated Diff EDMS 05/13 15:09 Order name: CBC with Automated Diff EDMS 05/13 15:09 Order name: CBC with Automated Diff EDMS 05/13 15:09 Order name: CBC with Automated Diff EDMS 05/13 15:09 Order name: CBC with Automated Diff EDMS 05/13 15:09 Order name: Magnesium EDMS 05/13 15:09 Order name: Magnesium EDMS 05/13 15:09 Order name: Magnesium EDMS 05/13 15:09 Order name: Magnesium EDMS 05/13 15:10 Order name: Magnesium EDMS 05/13 15:10 Order name: Magnesium EDMS 05/13 15:10 Order name: Magnesium EDMS 05/13 15:10 Order name: Magnesium EDMS 05/13 15:10 Order name: Phosphorus EDMS 05/13 15:10 Order name: Phosphorus EDMS 05/13 15:10 Order name: Phosphorus EDMS 05/13 15:10 Order name: Phosphorus EDMS 05/13 15:10 Order name: Phosphorus EDMS 05/13 15:10 Order name: Phosphorus EDMS 05/13 15:10 Order name: Phosphorus EDMS 05/13 15:10 Order name: Phosphorus EDMS 05/13 10:10 Order name: CT Head C Spine; Complete Time: 11:10 rt 05/13 10:10 Order name: CT Chest Abdomen Pelvis W/O Contrast; Complete Time: 11:10 rt 05/13 11:31 Order name: INCENTIVE SPIROMETRY rt 05/13 11:31 Order name: EKG; Complete Time: 11:32 rt 05/13 11:31 Order name: Accucheck; Complete Time: 11:41 rt 05/13 11:31 Order name: Cardiac monitoring; Complete Time: 11:41 rt 05/13 11:31 Order name: EKG - Nurse/Tech; Complete Time: 13:10 rt 05/13 11:31 Order name: IV Saline Lock - Large Bore; Complete Time: 11:41 rt 05/13 11:31 Order name: Labs collected and sent; Complete Time: 12:20 rt 05/13 11:31 Order name: O2 Per Protocol; Complete Time: 11:41 rt 05/13 11:31 Order name: O2 Sat Monitoring; Complete Time: 11:40 rt 05/13 11:31 Order name: Vital Signs; Complete Time: 11:40 rt EC:42 Rate is 95 beats/min. Rhythm is regular, Normal Sinus Rhythm with No ectopy. QRS Hydro rt is Normal. AR interval is normal. QRS interval is normal. QT interval is prolonged at 545 msec. No Q waves. Clinical impression: NSR w/ Non-specific ST/T Changes. Administered Medications: 10:18 Drug: morphine IM 4 mg IM once Route: IM; Site: affected area; bp 11:40 Follow up: Response: No adverse reaction bp 12:15 Drug: LevaQUIN IVPB 750 mg IVPB once Route: IVPB; Site: left forearm; bp 17:07 Follow up: IV Status: Completed infusion bp Disposition Summary: 05/13/24 13:45 Hospitalization Ordered Notes: Hospitalization Status: Inpatient Admission rt Provider: Michael Yates rt Location: Telemetry/MedSur (Inpatient) rt Condition: Stable rt Problem: new rt Symptoms: have improved rt Bed/Room Type: Standard rt Room Assignment: 206(05/13/24 17:01) em1 Diagnosis - Multiple left-sided rib fractures rt - Community-acquired pneumonia rt Forms: - Medication Reconciliation Form rt - SBAR form rt - Leadership Thank You Letter rt Signatures: Dispatcher [employer] JOAQUINPeewee Nieto em1 Brian Cespedes, RN RN bp Dejuan Marshall MD MD rt Corrections: (The following items were deleted from the chart) 11:32 11:32 BLOOD CULTURE*+BA.LAB.BRZ ordered. EDMS EDMS 11:32 11:32 CBC+H.LAB.BRZ ordered. EDMS EDMS 11:32 11:32 COMPREHENSIVE METABOLIC PANEL+C.LAB.BRZ ordered. EDMS EDMS 11:32 11:32 LACTATE+C.LAB.BRZ ordered. EDMS EDMS 11:32 11:32 PROTIME (+INR)+COAG.LAB.BRZ ordered. EDMS EDMS 11:32 11:32 PTT, ACTIVATED+COAG.LAB.BRZ ordered. EDMS EDMS 16:28 13:45 rt em1 16:34 16:28 em1 em1 17:01 16:34 em1 em1
--- NOTE | 2024-05-13 13:46 | ER ---
Nurse's Notes [facility] Name: Marco Mascorro Age: 69 yrs Sex: Male : 1955 Arrival Date: 05/13/2024 Time: 10:05 Bed 16 Private MD: Diagnosis: Multiple left-sided rib fractures;Community-acquired pneumonia Presentation: 05/13 10:12 Chief complaint: EMS states: MECHANICAL FALL WITH WALKER. Coronavirus screen: At this bp time, the client does not indicate any symptoms associated with coronavirus-19. Ebola Screen: No symptoms or risks identified at this time. Initial Sepsis Screen: Does the patient meet any 2 criteria? No. Patient's initial sepsis screen is negative. Does the patient have a suspected source of infection? No. Patient's initial sepsis screen is negative. Risk Assessment: Do you want to hurt yourself or someone else? Patient reports no desire to harm self or others. Onset of symptoms is unknown. 10:12 Method Of Arrival: EMS bp 10:12 Acuity: [place]UG[place] 3 bp Triage Assessment: 10:13 General: Appears in no apparent distress. uncomfortable, Behavior is cooperative, bp appropriate for age, anxious. Pain: Complains of pain in chest. EENT: No deficits noted. Neuro: No deficits noted. Cardiovascular: No deficits noted. Respiratory: No deficits noted. GI: No signs and/or symptoms were reported involving the gastrointestinal system. : No signs and/or symptoms were reported regarding the genitourinary system. Derm: No deficits noted. Musculoskeletal: No deficits noted. Historical: - Allergies: 10:13 No Known Allergies; bp - PMHx: 10:13 Chronic obstructive lung disease; bp - Immunization history:: Adult Immunizations up to date. - Infectious Disease History:: Denies. - Social history:: Smoking status: unknown. - Family history:: not pertinent. Screenin:20 [facility] ED Fall Risk Assessment (Adult) History of falling in the last 3 months, bp including since admission Yes- single mechanical fall (1 pt) Confusion or Disorientation No (0 pts) Intoxicated or Sedated No (0 pts) Impaired Gait No (0 pts) Mobility Assist Device Used No (0 pt) Altered Elimination No (0 pt) Score/Fall Risk Level 0 - 2 = Low Risk Oriented to surroundings. Abuse screen: Denies threats or abuse. Denies injuries from another. Nutritional screening: No deficits noted. Tuberculosis screening: No symptoms or risk factors identified. Assessment: 10:15 General: Appears in no apparent distress. uncomfortable, Behavior is cooperative, bp appropriate for age. Pain: Complains of pain in chest. Neuro: No deficits noted. Cardiovascular: No deficits noted. Respiratory: No deficits noted. GI: No signs and/or symptoms were reported involving the gastrointestinal system. : No signs and/or symptoms were reported regarding the genitourinary system. EENT: No deficits noted. Derm: No deficits noted. Musculoskeletal: No deficits noted. 12:00 Reassessment: No changes from previously documented assessment. Patient is alert, bp oriented x 3, equal unlabored respirations, skin warm/dry/pink. 13:36 Reassessment: Patient is alert/active/playful, equal unlabored respirations, skin db warm/dry/pink. PT ASSISTED WITH URINAL. 15:00 Reassessment: Patient appears in no apparent distress at this time. Patient is alert, bp oriented x 3, equal unlabored respirations, skin warm/dry/pink. 17:09 Reassessment: REPORT FAXED TO 206. bp Vital Signs: 10:12 BP 138 / 70; Pulse 90; Resp 14; Temp 98.2; Pulse Ox 96% on 3 lpm NC; bp 13:10 BP 156 / 92; Pulse 94; Resp 16; Pulse Ox 94% ; bp 17:00 BP 155 / 89; Pulse 85; Resp 18; Temp 98.5; Pulse Ox 95% on 2 lpm NC; bp ED Course: 10:07 Patient arrived in ED. em1 10:09 Dejuan Marshall MD is Attending Physician. rt 10:12 Brian Cespedes, GAUDENCIO is Primary Nurse. bp 10:13 Triage completed. bp 10:13 Arm band placed on. bp 10:20 Patient has correct armband on for positive identification. bp 10:20 Maintain EMS IV. Dressing intact. Good blood return noted. Site clean \T\ dry. Gauge \T\ bp site: 20 G L FA. Flushed with 10 mL NS. 10:28 CT Head C Spine In Process Unspecified. EDMS 10:28 CT Chest Abdomen Pelvis W/O Contrast In Process Unspecified. EDMS 13:45 Michael Yates is Hospitalizing Provider. rt 17:10 No provider procedures requiring assistance completed. Patient admitted, IV remains in bp place. Administered Medications: 10:18 Drug: morphine IM 4 mg IM once Route: IM; Site: affected area; bp 11:40 Follow up: Response: No adverse reaction bp 12:15 Drug: LevaQUIN IVPB 750 mg IVPB once Route: IVPB; Site: left forearm; bp 17:07 Follow up: IV Status: Completed infusion bp Medication: 17:11 VIS not applicable for this client. bp Outcome: 13:45 Decision to Hospitalize by Provider. rt 17:10 Admitted to Med/surg accompanied by tech, via stretcher, with chart, bp 17:10 Condition: stable 17:10 Instructed on the need for admit, 18:04 Patient left the ED. bp Signatures: Dispatcher [employer] Peewee Damon em1 Brian Cespedes, GAUDENCIO RN bp Kelsey Pollock RN RN db Dejuan Marshall MD MD rt
[2024-05-13] MEDS ORDERED: ACETAMINOPHEN 325 MG TABLET PO PRN (15:04)
[2024-05-13] MEDS: FUROSEMIDE 40 MG/4 ML VIAL IV ONE (15:19)
[2024-05-13] MEDS: LEVALBUTEROL 0.63 MG/3 ML NEB NEB SCH (20:48)
[2024-05-13] MEDS: IPRATROPIUM BROM 0.5MG/2.5ML NEB SCH (20:48)
[2024-05-13] MEDS: KETOROLAC 30 MG/ML INJ IV ONE (21:11)
--- NOTE | 2024-05-14 07:18 | P.PN ---
Date of Service: 05/14/24 Subjective c/o pain, appears no pain medication given overnight dilaudid and Toradol this morning, will restart home norco Chest xray in the AM ROS 10 point ROS as noted above, otherwise negative Physical Exam General: Awake and agitated, Oriented x3, Other (uncomfortable) HEENT: Atraumatic, Normocephalic Neck: Supple, 2+ carotid pulse no bruit Respiratory: Clear BBS, Normal air movement, 2 LNC Cardiovascular: Normal pulses, mild tachycardia, Normal S1 S2 Capillary refill: <2 Seconds Gastrointestinal: Normal bowel sounds, Soft on palpation, nontender Musculoskeletal: No clubbing Integumentary: No rashes Neurological: Agitated Vitals Reviewed Problem list Trauma mechanical fall Left rib fracture 3-10 Right sided pneumonia Small left pleural effusion Hyponatremic COPD 3.2 abdominal aortic aneurysm Right inguinal hernia Assessment and Plan Trauma mechanical fall Left rib fracture 3-10 Right sided pneumonia Small left pleural effusion -CT CAP reports "Mostly mildly displaced fractures involving the left third through 10th ribs. Right lung pneumonia. This should be followed until has cleared to help exclude a postobstructive process/underlying mass, Small left pleural effusion." -CT head/cervical spine reports "No acute intracranial abnormality noted. A cervical fracture is not seen. Mild to moderate anterior subluxation C3 on C4. Significant soft tissue swelling not seen." -pain control -supportive care -Dr. Albarado consulted -Continue Levaquin daily -Lasix x 1, not given, reordered -General surgery consulted Hyponatremic -NA 132 -Lasix x1, monitor in AM labs COPD -continue home medications -Duonebs -Oxygen protocol in place 3.2 abdominal aortic aneurysm Right inguinal hernia -Findings on CT CAP -reports aneurysm unchanged DVT ppx SCD full code LOS 2-3 days Discharge Plan: Home Plan to discharge in: 48 Hours
[2024-05-14 07:25] LABS: Absolute Lymphocytes (CBC) 0.1 K/uL (0.7-4.9); Absolute Monocytes 0.6 K/uL (0.1-1.3); Absolute Neutrophil 4.7 K/uL (1.8-8.0); Basophils % 0.2 % (0-1.3); Hemoglobin 9.2 g/dL (13.6-17.9); Lymphocytes % 2.5 % (15.3-44.8); MCV 90.9 fL (80-100); MPV 7.4 fL (7.6-11.3); Monocytes % 11.3 % (3.3-12.3); Nucleated Red Blood Cells % 0.1 % (0-0); Platelets 127 thou/uL (152-406); RBC Red Blood Cell Count 3.08 M/uL (4.33-5.43); Red Cell Distribution Width 16.3 % (12.1-15.2)
[2024-05-14 07:39] LABS: Magnesium 1.8 mg/dL (1.6-2.4); Phosphorus 2.7 mg/dL (2.5-4.9)
[2024-05-14] MEDS: HYDROMORPHONE HCL 1 MG/ML INJ IV PRN (08:45)
[2024-05-14] MEDS: Levofloxacin 750mg IV 750 MG/150 ML BAG IV SCH (10:45)
[2024-05-14] MEDS: KETOROLAC 30 MG/ML INJ IV ONE (10:45)
[2024-05-14] MEDS: FUROSEMIDE 40 MG/4 ML VIAL IV ONE (10:46)
[2024-05-14] MEDS: MAGNESIUM SULFATE 1 gm IVPB 1 GM/100 ML BAG IV ONE (13:10)
--- NOTE | 2024-05-14 15:08 | EKG ---
Test Date: 2024-05-13 Test Time: 13:11:20 Forging Die Finisher: CASSIE MEASUREMENT RESULTS: Intervals: Rate: 95 SC: 162 QRSD: 106 QT: 434 QTc: 545 [place]: P: 63 SC: 162 QRS: 51 T: 88 INTERPRETIVE STATEMENTS: Normal sinus rhythm ST & T wave abnormality, consider lateral ischemia Prolonged QT Abnormal ECG No previous ECG available for comparison Electronically Signed On 05-14-24 15:06:07 SCRUBBER OPERATOR by Donnell Harvey
--- NOTE | 2024-05-14 19:39 | P.CNS ---
Date of Consult: 05/14/24 Reason for Consult: Left-sided rib fractures with right lower lobe possible pneumonia Chief Complaint: Multiple rib fractures, right sided PNA History of Present Illness: Patient is 69 years of age with a history of COPD apparently tripped over his oxygen tubing fell fractured his ribs from 3-10 on the left side may have some atelectasis or pneumonia on the right side he still complains of significant amount of discomfort Allergies No Known Allergies Allergy (Unverified 05/13/24 17:59) - Past Medical/Surgical History -: COPD -: copd -: abdominal aortic an -: garrett hips -: inguinal hernia - Social History Smoking Status: Unknown if ever smoked Alcohol use: No CD- Drugs: No Caffeine use: No Place of Residence: Home Review of Systems 10-point ROS is otherwise unremarkable General: Weakness Respiratory: Shortness of Breath Cardiovascular: Chest Pain Physical Examination Temp Pulse Resp BP Pulse Ox 97.8 F 93 H 20 101/58 L 97 05/14/24 16:00 05/14/24 16:00 05/14/24 16:00 05/14/24 16:00 05/14/24 16:00 General: Alert, Oriented x3, Moderate distress Respiratory: Clear to auscultation bilaterally Cardiovascular: No edema, Regular rate/rhythm, Normal S1 S2, Edema Gastrointestinal: Normal bowel sounds, Soft and benign, Non-distended - Problems (1) Multiple rib fractures involving four or more ribs Current Visit: Yes Status: Acute Plan: Patient is 69 years of age with a history of COPD uses Breo at home apparently he fell and fractured and number of ribs on the left side possibly has a pneumonia on the right side to admit pain control chest x-ray in the morning continue with antibiotics bronchodilators chemistries reviewed mildly anemic oxygenation satisfactory blood pressure under control
--- NOTE | 2024-05-14 19:49 | CON ---
Date of Consultation: 05/14/2024 Reason For Service: Multiple rib fractures, status post fall. History Of Present Illness: This is a case of a 69-year-old patient who used to use a walker, but in the last few months he has been falling more than usual. He specified that he did not fall that he has basically tripped and then basically slowly go down and normally he was able to hold himself, but right now becoming more difficult to the point that he hit whatever is next to him. He has multiple falls in the past with multiple rib fractures. Now, he comes with rib fractures in the left side, e valuated initially by the ER physician, admitted to the medical service, and a surgical consult was o btained for evaluation. The patient denies any loss of consciousness and he said once again he was c onscious all the time and he knew when he was just got out of balance which is in his case happened a lot. He does not want his to be telling the story. He wants himself to tell the story, althou gh the once again specified that he is obviously losing his balance more often. Allergies: NO KNOWN DRUG ALLERGIES. Medications: . Social History: He does not smoke. He does not drink alcohol. Family History: Noncontributory. Review of Systems: No fever. No chills. No shortness of breath. No chest pain other than palpation and tenderness of the rib fractures. No melena. He does not recall his last colonoscopy, although he was advised and he does not feel any dizziness at this moment. Ten points otherwise unremarkable. Physical Examination: Vital Signs: Reviewed. General: The patient is awake, alert. HEENT: Pupils anicteric. Neck: Supple. Chest: Clear. Bilateral breath sounds. Some tenderness of the left ribcage region, but there is no crepitus. Abdomen: Soft and depressible. No guarding or rebound. Extremities: Good capillary refill. Peripheral pulses present. Neuro: The patient is oriented x3. He responds to the questions accurately. Pupils are equal and r eactive. No otorrhea. No rhinorrhea. Cranial nerves 2 through 12 grossly within normal limits. Laboratory Data: Blood work shows head, C-spine, chest, abdomen, and pelvis interpreted by Dr. Noel lorenzo as cervical fracture is not seen, no soft tissue swelling, see anterior subluxation of C3-C4, no a cute abnormalities. He does not have any pain or tenderness over those areas on palpation. The fred ent has right inguinal hernia, 3.2 cm aortic aneurysm, bilateral , multiple subacute right rib fractures and then multiple from 3rd to 10th rib fractures on the left side mildly displaced, no pneumothorax, small left pleural effusion, no pulmonary contusion seen. Assessment: This is a 69-year-old patient status post fall. Neck and spine do not have any tenderne ss at this moment. Still because of the findings on the CAT scan of the C-spine, I will suggest the patient have a neurological consult for a more accurate diagnosis and if MRI is needed or not. From the surgical standpoint and ribcage specific, we are going to continue conservative treatment, incent maynor spirometry, pain control. For the right inguinal hernia, he may have to have an elective right i nguinal hernia repair, and he was advised to follow with the primary doctor on his aortic aneurysm, a nd we suggest a followup in 3 years from now. The patient fully advised and the too when they f ollow with her primary doctor. We will follow the patient with you. MARINA/WINSTON Voice ID: [id number] Report ID: [id number]
--- NOTE | 2024-05-15 07:23 | RAD REPORT ---
Procedure: Chest Single View HISTORY: Chest pain COMPARISON: none FINDINGS: Partial resolution of right lower lobe opacity.. Interstitial lung pattern appears mildly prominent. No significant pleural effusion noted. The heart is mildly enlarged. No change in left rib fractures. No pneumothorax.. IMPRESSION: Partial resolution in right lower lobe infiltrate. Interstitial lung pattern is mildly prominent. This may indicate mild interstitial pulmonary edema.
[2024-05-15 08:45] LABS: Anion Gap 5.8 mEq/L (5.0-15.0); Magnesium 2.1 mg/dL (1.6-2.4); Phosphorus 2.7 mg/dL (2.5-4.9); Potassium 3.8 mEq/L (3.5-5.1)
[2024-05-15 09:02] LABS: Absolute Lymphocytes (CBC) 0.2 K/uL (0.7-4.9); Absolute Monocytes 0.6 K/uL (0.1-1.3); Basophils % 0.1 % (0-1.3); Hematocrit 31.4 % (39.6-49.0); Hemoglobin 10.2 g/dL (13.6-17.9); Lymphocytes % 2.3 % (15.3-44.8); MCH 29.4 pg (27.0-35.0); MCHC 32.4 g/dL (32.0-36.0); MCV 90.7 fL (80-100); MPV 8.6 fL (7.6-11.3); Neutrophils % 88.6 % (41.7-73.7); Nucleated Red Blood Cells % 0.2 % (0-0); Platelets 137 thou/uL (152-406); RBC Red Blood Cell Count 3.47 M/uL (4.33-5.43); Red Cell Distribution Width 16.1 % (12.1-15.2)
[2024-05-15 09:04] LABS: Arterial Blood Carboxyhemoglob 1.5 % (0-1.5); Blood Gas THB 10.2 g/dl (12-18); Blood O2 Saturation 86.7 % (92-98.5)
[2024-05-15] MEDS: FUROSEMIDE 40 MG/4 ML VIAL IV ONE (09:20)
[2024-05-15] MEDS: KETOROLAC 30 MG/ML INJ IV ONE (11:26)
--- NOTE | 2024-05-15 12:04 | PN ---
Date of Progress Note: 05/15/2024 Subjective: Status post multiple rib fractures. Patient is awake and alert. No distress. He is us ing his BiPAP machine. He has history of COPD. He says he feels the same. He does not feel worse. He can breathe. He does not want to have people around the room. So he but he says he j ust like his privacy. Objective: Chest: Clear. Bilateral breath sounds. No crepitus. Abdomen: Soft and depressible. Extremities: Good capillary refill. Imaging: Chest x-ray shows no pneumothorax. Plan: Continue medical service, pain control, incentive spirometry. HM/MODL Voice ID: [id number] Report ID: [id number]
[2024-05-15 12:59] LABS: Arterial Blood Carboxyhemoglob 1.5 % (0-1.5); Blood O2 Saturation 98.1 % (92-98.5)
--- NOTE | 2024-05-15 13:41 | P.PN ---
Date of Service: 05/15/24 Subjective agitated, ABG showing hypercapnia Bipap, showing improvement Will trend ABG ROS 10 point ROS as noted above, otherwise negative Physical Exam General: agitated, Oriented x3, Other (uncomfortable) HEENT: Atraumatic, Normocephalic Neck: Supple, 2+ carotid pulse no bruit Respiratory: Clear BBS, increased WOB, 5 LNC Cardiovascular: Normal pulses, mild tachycardia, Normal S1 S2 Capillary refill: <2 Seconds Gastrointestinal: Normal bowel sounds, Soft on palpation, nontender Musculoskeletal: No clubbing Integumentary: No rashes Neurological: Agitated Vitals Reviewed Problem list Trauma mechanical fall Left rib fracture 3-10 Right sided pneumonia Small left pleural effusion Hyponatremic COPD 3.2 abdominal aortic aneurysm Right inguinal hernia Assessment and Plan Trauma mechanical fall Left rib fracture 3-10 Right sided pneumonia Small left pleural effusion -CT CAP reports "Mostly mildly displaced fractures involving the left third through 10th ribs. Right lung pneumonia. This should be followed until has cleared to help exclude a postobstructive process/underlying mass, Small left pleural effusion." -CT head/cervical spine reports "No acute intracranial abnormality noted. A cervical fracture is not seen. Mild to moderate anterior subluxation C3 on C4. Significant soft tissue swelling not seen." -CXR 05/14 reports "Partial resolution in right lower lobe infiltrate. Inter stitial lung pattern is mildly prominent. This may indicate mild interstitial pulmonary edema." -pain control -supportive care -Dr. Albarado, Dr. Gamino consulted -Continue Levaquin daily -Lasix x 1 and toradol x 1 given today -General surgery consulted Hyponatremic -NA 131 -Lasix x1, monitor in AM labs COPD -continue home medications -Duonebs -Oxygen protocol in place 3.2 abdominal aortic aneurysm Right inguinal hernia -Findings on CT CAP -reports aneurysm unchanged DVT ppx SCD full code LOS 2-3 days Discharge Plan: Home Plan to discharge in: 48 Hours <Magalys Nguyễn - Last Filed: 05/15/24 13:34> Patient seen and examined with Ms. Nguyễn. Plan of care discussed. Patient agitated, has hypercapnia. He became dependent on BiPAP and had to be on it for several hours. Patient desaturated on oxygen by nasal cannula once BiPAP was removed. He is transferred to ICU for close monitoring. Patient is full code and okay with intubation. Bronchodilators Pulmonary consulted. Monitor labs. <suellen monet - Last Filed: 05/16/24 19:41>
[2024-05-15] MEDS: METHYLPREDNISOLONE 125 MG INJ IV ONE (14:42)
[2024-05-15] MEDS ORDERED: VANCOMYCIN 1 GM in NA CHLORIDE 0.9% 250 ML IVPB SCH (19:00)
[2024-05-15] MEDS: VANCOMYCIN 1.75 GM in NA CHLORIDE 0.9% 500 ML IVPB ONE (19:53)
[2024-05-15] MEDS: Meropenem 1,000 MG in NA CHLORIDE 0.9% 100 ML IV SCH (23:55)
[2024-05-16 00:05] LABS: Sqamous Epithelial None Seen /HPF (None Seen); Urine Bacteria <20 /HPF (<20); Urine Bilirubin NEGATIVE (Negative); Urine Blood 2+ (Negative); Urine Clarity Extremely Turbid (Clear); Urine Color Yellow (Yellow); Urine Culture Reflex Order NOT NEEDED; Urine Glucose NEGATIVE (Negative); Urine Ketones 2+ (Negative); Urine Microscopic Reflex YN ORDER UMIC; Urine Mucus Slight /HPF (None Seen); Urine Nitrite NEGATIVE (Negative); Urine Protein 1+ (Negative); Urine Urobilinogen Normal (Normal); Urine WBC <5 /HPF (<5); Urine pH 7.5 (5.0-7.0)
[2024-05-16 05:51] LABS: Absolute Lymphocytes (CBC) 0.2 K/uL (0.7-4.9); Absolute Monocytes 0.4 K/uL (0.1-1.3); Hematocrit 29.4 % (39.6-49.0); Hemoglobin 9.8 g/dL (13.6-17.9); Lymphocytes % 5.1 % (15.3-44.8); MCH 29.6 pg (27.0-35.0); MCHC 33.3 g/dL (32.0-36.0); MCV 88.8 fL (80-100); MPV 8.7 fL (7.6-11.3); Monocytes % 11.1 % (3.3-12.3); Neutrophils % 83.8 % (41.7-73.7); Platelets 140 thou/uL (152-406); RBC Red Blood Cell Count 3.31 M/uL (4.33-5.43); Red Cell Distribution Width 16.3 % (12.1-15.2)
[2024-05-16 06:12] LABS: Anion Gap 8.1 mEq/L (5.0-15.0); Phosphorus 2.3 mg/dL (2.5-4.9); Potassium 3.1 mEq/L (3.5-5.1)
[2024-05-16] MEDS: KCL 20 MEQ/100 mL IVPB 20 MEQ/100 ML BAG IV SCH (08:17)
[2024-05-16] MEDS: DEXMEDETOMIDINE HCL 1,000 MCG in NA CHLORIDE 0.9% 490 ML IV SCH (08:35)
--- NOTE | 2024-05-16 08:53 | P.PN ---
Date of Service: 05/16/24 Subjective Sent to ICU last night for continuous bipap On nasal cannula OVN oxygen saturation satisfactory Respiratory rate this morning between 18-22 Starting precedex gtt more calm this morning ROS 10 point ROS as noted above, otherwise negative Physical Exam General: agitated, alert, Oriented x3, Other (uncomfortable) HEENT: Atraumatic, Normocephalic Neck: Supple, 2+ carotid pulse no bruit Respiratory: Faint breath sounds, increased WOB, 5 LNC Cardiovascular: mild tachycardia, Normal S1 S2 Capillary refill: <2 Seconds Gastrointestinal: Normal active bowel sounds, Soft on palpation, D/NT Musculoskeletal: No clubbing Integumentary: No rashes Neurological: Agitated Vitals Reviewed Problem list Trauma mechanical fall Left rib fracture 3-10 Right sided pneumonia Small left pleural effusion Hyponatremic COPD 3.2 abdominal aortic aneurysm Right inguinal hernia Assessment and Plan Trauma mechanical fall Left rib fracture 3-10 Right sided pneumonia Small left pleural effusion -CT CAP reports "Mostly mildly displaced fractures involving the left third through 10th ribs. Right lung pneumonia. This should be followed until has cleared to help exclude a postobstructive process/underlying mass, Small left pleural effusion." -CT head/cervical spine reports "No acute intracranial abnormality noted. A cervical fracture is not seen. Mild to moderate anterior subluxation C3 on C4. Significant soft tissue swelling not seen." -CXR 05/14 reports "Partial resolution in right lower lobe infiltrate. Interstitial lung pattern is mildly prominent. This may indicate mild interstitial pulmonary edema." -CXR 05/16 reports "Similar volume loss in the right lung with right lower lobe consolidation. While pneumonia is most likely (and possibly due to aspiration), continued imaging following is recommended to ensure resolution. No pneumothorax." -pain control -supportive care -Dr. Albarado, Dr. Gamino consulted -Vanc/merrem started 05/16/24 -Lasix x 1 and toradol x 1 given today -precedex started Hyponatremic -NA 133 -Lasix x1, monitor in AM labs COPD -continue home medications -Duonebs -Oxygen protocol in place 3.2 abdominal aortic aneurysm Right inguinal hernia -Findings on CT CAP -reports aneurysm unchanged DVT ppx SCD full code LOS 2-3 days Discharge Plan: Home Plan to discharge in: 48 Hours <Magalys Nguyễn - Last Filed: 05/16/24 15:02> Patient seen and examined with Ms. Nguyễn. Plan of care discussed. Patient with hypoxia and hypercapnia secondary to hypoventilation. Hypoventilation is likely related to bilateral rib fractures and pneumonia. Chest x-ray shows improvement in right lung infiltrate. Patient intermittently agitated. Continue IV meropenem vancomycin. BiPAP therapy Patient is on Precedex for agitation on the BiPAP. Haldol as needed for dementia with behavioral abnormality and hallucination. Pulmonary evaluated patient and following. Soft diet. Bronchodilators as per pulmonary. Analgesics as needed. Nurse report patient experienced an episode of bradycardia. Continue cardiac monitoring. Wean down Precedex as possible. <suellen monet - Last Filed: 05/16/24 19:32>
[2024-05-16] MEDS ORDERED: DEXMEDETOMIDINE HCL 200 MCG in NA CHLORIDE 0.9% 98 ML IV SCH (09:00)
[2024-05-16] MEDS: VANCOMYCIN 1.25 GM in NA CHLORIDE 0.9% 250 ML IVPB SCH (09:17)
[2024-05-16] MEDS: ARFORMOTEROL TARTRATE 15 MCG/2 ML VIAL.NEB NEB SCH (10:09)
--- NOTE | 2024-05-16 10:10 | P.PN ---
Subjective Date of Service: 05/16/24 Chief Complaint: Multiple rib fractures, right sided PNA Patient was transferred to the ICU still complains of significant amount of discomfort on the left side he appears to be splinting his left side delirious Review of Systems is unable to be obtained Physical Examination - Vital Signs Temperature: 98.5 F Blood Pressure: 156/86 Pulse: 100 Respirations: 19 Pulse Ox (%): 95 - Physical Exam General: Moderate distress, Delirious Respiratory: Clear to auscultation bilaterally, Diminished Cardiovascular: No edema, Regular rate/rhythm, Normal S1 S2 Assessment And Plan - Current Problems (Diagnosis) (1) Multiple rib fractures involving four or more ribs Current Visit: Yes Status: Acute Plan: Patient has multiple fractures is splinting his left side the left side appears to be hyperinflated pneumothorax continue to monitor daily chest x-rays out pneumonia right sided diaphragm appears to be very well outlined add Solu-Medrol for now scheduled bronchodilators If tolerated patient is on Precedex patient's oxygenation is satisfactory patient has a hypercapnia
[2024-05-16] MEDS: METHYLPREDNISOLONE 40 MG INJ IV SCH (10:51)
[2024-05-16] MEDS: ENOXAPARIN 40 MG/0.4 ML SQ SCH (10:51)
[2024-05-16] MEDS: FENTANYL 25 MCG/PATCH TD ONE (10:51)
[2024-05-16] MEDS: HALOPERIDOL LACT 5 MG/ML INJ IV PRN (10:55)
--- NOTE | 2024-05-16 11:00 | RAD REPORT ---
EXAM: Chest Single View HISTORY: Left-sided rib fracture COMPARISON: 05/15/2024 FINDINGS: LUNGS/PLEURA: Airspace disease in the right lung with some volume loss is similar to 05/15/2024. MEDIASTINUM: The mediastinal silhouette is within normal limits. CARDIAC: Mild cardiomegaly UPPER ABDOMEN: No significant abnormality. BONES: Left-sided rib fractures. Demonstrated on CT. LINES/TUBES/OTHER: N/A IMPRESSION: Similar volume loss in the right lung with right lower lobe consolidation. While pneumonia is most li ben (and possibly due to aspiration), continued imaging following is recommended to ensure resolution. No pneumothorax.
[2024-05-16] MEDS: ALBUTEROL 2.5 MG/3 ML NEB SOL NEB SCH (13:04)
[2024-05-16 15:20] VITALS: BMI 22.6
[2024-05-16] MEDS: HYDROCODONE/APAP 10/325 TAB PO PRN (16:19)
--- NOTE | 2024-05-16 21:32 | PN ---
Date of Progress Note: 05/16/2024 Reason For Service: Multiple left rib fractures. Subjective: Patient will have to be transferred to the ICU for respiratory system. The patient is d oing well. He is awake and alert, on BiPAP at this moment. Review of Systems: Unable to be obtained. Although we asked him and he does not have any shortness of breath at this mo ment. Physical Examination: Vital Signs: Reviewed. General: The patient is awake and alert. He answered commands. Respiratory: Bilateral breath sounds clear, rib tenderness, but no crepitus. Abdomen: Soft and depressible. Plan: Continue medical service. Follow up with the incentive spirometry. We are going to continue conservative treatment from the surgical standpoint. HM/MODL Voice ID: [id number] Report ID: [id number]
[2024-05-17 05:21] LABS: Absolute Lymphocytes (CBC) 0.3 K/uL (0.7-4.9); Absolute Monocytes 0.4 K/uL (0.1-1.3); Absolute Neutrophil 3.2 K/uL (1.8-8.0); Basophils % 0.1 % (0-1.3); Eosinophils % 0.1 % (0-4.4); Hematocrit 32.8 % (39.6-49.0); Lymphocytes % 8.4 % (15.3-44.8); MCH 29.6 pg (27.0-35.0); MCHC 33.4 g/dL (32.0-36.0); MCV 88.4 fL (80-100); MPV 7.8 fL (7.6-11.3); Neutrophils % 80.4 % (41.7-73.7); Nucleated Red Blood Cells % 0.2 % (0-0); Platelets 139 thou/uL (152-406); RBC Red Blood Cell Count 3.72 M/uL (4.33-5.43); Red Cell Distribution Width 16.1 % (12.1-15.2)
[2024-05-17 05:41] LABS: Anion Gap 9.2 mEq/L (5.0-15.0); Magnesium 2.1 mg/dL (1.6-2.4); Phosphorus 2.5 mg/dL (2.5-4.9); Potassium 3.2 mEq/L (3.5-5.1)
[2024-05-17] MEDS: POTASSIUM CL SA 10 MEQ TAB PO ONE (06:24)
--- NOTE | 2024-05-17 07:56 | RAD REPORT ---
EXAMINATION: ONE VIEW CHEST XR CLINICAL INDICATION: Left-sided rib fracture TECHNIQUE: Frontal chest projection is submitted. Examination is limited by patient positioning and t echnique. COMPARISON: 05/16/2024, 05/15/2024 FINDINGS: Mild bilateral pulmonary opacities, greater on the right, unchanged. The heart is moderately enlarged . Right shoulder degenerative changes. Left lateral rib fractures are stable. IMPRESSION: Stable chest study dated 05/16/2024.
--- NOTE | 2024-05-17 12:33 | P.PN ---
Subjective Date of Service: 05/17/24 Chief Complaint: Multiple rib fractures, right sided PNA Patient is doing better he is tolerating BiPAP well on a fentanyl patch had an episode of bradycardia last night Review of Systems General: Weakness Respiratory: Cough, Shortness of Breath Cardiovascular: Chest Pain Physical Examination - Vital Signs Temperature: 97 F Blood Pressure: 111/62 Pulse: 76 Respirations: 23 Pulse Ox (%): 100 - Physical Exam General: Alert, Oriented x3, Moderate distress Respiratory: Clear to auscultation bilaterally, Diminished Cardiovascular: No edema, Regular rate/rhythm, Normal S1 S2 Assessment And Plan - Current Problems (Diagnosis) (1) Multiple rib fractures involving four or more ribs Current Visit: Yes Status: Acute Plan: Patient has multiple rib fractures on the left side his pain is better controlled on a fentanyl patch continue with BiPAP continue to monitor chest x- ray his left lung is hyperinflated with no pneumothorax and is also on dexmedetomidine and Solu-Medrol in addition to long-acting bronchodilator
--- NOTE | 2024-05-17 18:52 | P.DS ---
Admission Date: 05/13/24 Discharge Date: 05/17/24 Disposition: [facility] Discharge Condition: FAIR Reason for Admission: Multiple rib fractures, right sided PNA Brief History of Present Illness: Marco Mascorro is a 69 year old male with Pmhx COPD on 4-5 LNC who reports tripping over his walker falling on his left side. On evaluation, patient was extremely uncomfortable, requesting pain medication for his left rib fractures, on 3 LNC, gurgling lung sounds. CT CAP reported mildly displaced fractures to left third through tenth ribs. Laboratory evaluation significant for sodium 131, bicarb 35, serum glucose 108 Initial vitals BP 138 / 70; Pulse 90; Resp 14; Temp 98.2; Pulse Ox 96% on [address] CAP reports "Mostly mildly displaced fractures involving the left third through 10th ribs. Right lung pneumonia. This should be followed until has cleared to help exclude a postobstructive process/underlying mass, Small left pleural effusion." CT head/cervical spine reports "No acute intracranial abnormality noted. A cervical fracture is not seen. Mild to moderate anterior subluxation C3 on C4. Significant soft tissue swelling not seen." Patient was admitted to hospitalist service for further evaluation and treatment. Hospital Course: Diagnosis Trauma mechanical fall Left rib fracture 3-10 Right sided pneumonia Small left pleural effusion Acute respiratory failure with hypoxia and hypercapnia Hyponatremic COPD 3.2 abdominal aortic aneurysm Right inguinal hernia Assessment and Plan Trauma mechanical fall Left rib fracture 3-10 Right sided pneumonia Small left pleural effusion Acute respiratory failure with hypoxia and hypercapnia -CT CAP reports "Mostly mildly displaced fractures involving the left third through 10th ribs. Right lung pneumonia. This should be followed until has cleared to help exclude a postobstructive process/underlying mass, Small left pleural effusion." -CT head/cervical spine reports "No acute intracranial abnormality noted. A cervical fracture is not seen. Mild to moderate anterior subluxation C3 on C4. Significant soft tissue swelling not seen." -CXR 05/14 reports "Partial resolution in right lower lobe infiltrate. Interstitial lung pattern is mildly prominent. This may indicate mild interstitial pulmonary edema." -CXR 05/16 reports "Similar volume loss in the right lung with right lower lobe consolidation. While pneumonia is most likely (and possibly due to aspiration), continued imaging following is recommended to ensure resolution. No pneumothorax." -Patient managed with IV hydromorphone and oral Hayes -Patient requiring BiPAP. -Intermittently agitated requiring Precedex drip -Pulmonary Dr. Albarado assisted with management. -General surgery Dr. Gamino evaluated patient and recommended medical management for the rib fractures. -Patient treated empirically with vanc/merrem started 05/16/24 for right-sided pneumonia. -Repeat chest x-ray showed improvement of the right-sided infiltrate. -He has not been able to wean off the BiPAP, patient considered a candidate for LTAC. -He has been accepted to LTAC, vitals are stable for transfer. Hyponatremic Resolved COPD -Patient placed on Brovana -Duonebs -He was treated with IV steroid 3.2 abdominal aortic aneurysm Right inguinal hernia -Findings on CT CAP -reports aneurysm unchanged -Outpatient monitoring Vital Signs/Physical Exam: Temp Pulse Resp BP Pulse Ox 97 F 75 22 H 147/79 H 100 05/17/24 12:33 05/17/24 18:00 05/17/24 18:00 05/17/24 18:00 05/17/24 18:00 General: In no apparent distress, Other (Awake) HEENT: Other (BiPAP) Neck: JVD not distended Respiratory: Diminished (Bilaterally), Other (No crackles) Cardiovascular: Regular rate/rhythm, Normal S1 S2 Gastrointestinal: Soft and benign, Non-distended Musculoskeletal: No swelling Integumentary: No rashes, No cyanosis Neurological: Normal strength at 5/5 x4 extr Laboratory Data at Discharge: WBC 4.00 thou/uL (4.3-10.9) L 05/17/24 04:55 Hgb 11.0 g/dL (13.6-17.9) L D 05/17/24 04:55 Hct 32.8 % (39.6-49.0) L 05/17/24 04:55 Plt Count 139 thou/uL (152-406) L 05/17/24 04:55 PT 10.3 SECONDS (9.4-12.5) 05/13/24 12:20 INR 0.98 05/13/24 12:20 APTT 30.4 SECONDS (24.3-36.9) 05/13/24 12:20 Sodium 136 mEq/L (136-145) 05/17/24 04:55 Potassium 3.2 mEq/L (3.5-5.1) L D 05/17/24 04:55 BUN 24 mg/dL (7-18) H 05/17/24 04:55 Creatinine 0.37 mg/dL (0.70-1.30) L 05/17/24 04:55 Glucose 136 mg/dL (74-106) H 05/17/24 04:55 Phosphorus 2.5 mg/dL (2.5-4.9) 05/17/24 04:55 Magnesium 2.1 mg/dL (1.6-2.4) 05/17/24 04:55 Total Bilirubin 0.3 mg/dL (0.2-1.0) 05/13/24 12:20 AST 29 U/L (15-37) 05/13/24 12:20 ALT 21 U/L (16-61) 05/13/24 12:20 Alkaline Phosphatase 83 U/L (45-117) 05/13/24 12:20 Home Medications: Acetaminophen [Tylenol*] 650 mg PO Q4HP PRN tab 05/17/24 Albuterol Neb [Proventil 0.083% Neb Soln] 2.5 mg NEB [id number] amp 05/17/24 Arformoterol Tartrate [Brovana] 15 mcg NEB BIDRESP vial.neb 05/17/24 Hydrocodone 10/APAP 325 [Hayes 10/325*] 1 tab PO Q4H PRN tab 05/17/24 Ipratropium Neb [Atrovent*] 0.5 mg NEB [id number] amp 05/17/24 Methylpred Na Suc [Solu-Medrol*] 40 mg IV BID vial 05/17/24 Pharmacy Consult 1 ea XX DAILYPRN PRN ea 05/17/24 Activity: Fall precautions Followup: Darrel Denise MD [Primary Care Provider] - Time spent managing pt's care (in minutes): 40
--- NOTE | 2024-05-17 20:14 | PN ---
Date of Progress Note: 05/17/2024 Reason For Service: Status post fall, multiple rib fracture. Subjective: The patient is doing better, is still in the ICU, BiPAP machine. He feels more comforta ble with less pain with the new pain medication given. He was advised the importance of incentive sp irometry. Objective: Chest: Bilateral breath sounds. No crepitus. Abdomen: Soft and depressible. No guarding, no rebound. Imaging: The x-ray interpreted by Dr. Pacheco today shows stable chest x-ray, mild bilateral pulmonary opacity. Left lateral rib fractures as before. Assessment: This is a 69-year-old patient with multiple rib fractures. Plan: Continue incentive spirometry. Ambulation as soon as possible. We will follow the patient wi th you. Pain control. HM/MODL Voice ID: [id number] Report ID: [id number]
[2024-05-18 04:51] VITALS: TEMP 97.6
[2024-05-18 05:15] LABS: Absolute Lymphocytes (CBC) 0.3 K/uL (0.7-4.9); Absolute Monocytes 0.3 K/uL (0.1-1.3); Absolute Neutrophil 3.5 K/uL (1.8-8.0); Basophils % 0.2 % (0-1.3); Hematocrit 31.1 % (39.6-49.0); Hemoglobin 10.4 g/dL (13.6-17.9); Lymphocytes % 7.3 % (15.3-44.8); MCH 29.8 pg (27.0-35.0); MCHC 33.6 g/dL (32.0-36.0); MCV 88.8 fL (80-100); MPV 7.4 fL (7.6-11.3); Monocytes % 7.6 % (3.3-12.3); Neutrophils % 84.9 % (41.7-73.7); Nucleated Red Blood Cells % 0.2 % (0-0); Platelets 142 thou/uL (152-406)
[2024-05-18 05:31] LABS: Anion Gap 5.6 mEq/L (5.0-15.0); Magnesium 2.3 mg/dL (1.6-2.4); Potassium 3.6 mEq/L (3.5-5.1)
[2024-05-18] MEDS: POTASSIUM 25 MEQ EFFERV TAB PO ONE (07:58)
--- NOTE | 2024-05-18 08:06 | P.PN ---
Date of Service: 05/18/24 Subjective: rib pains slightly more tolerable today feels easier to take deeper breath denies any new / worsening problems afebrile ROS: 10 point ROS as noted above, otherwise negative Physical Exam: GEN: Alert, oriented, NAD CV: Regular rate and rhythm, no edema Pulm: Nonlabored respirations on 2L NC, diminished bilaterally ABD: soft, nontender, nondistended MSK: left-sided rib pain Neuro: Normal speech, normal affect Problem List: Acute hypoxia and hypercapnia respiratory failure Left rib fractures (3rd-10th) s/p traumatic mechanical fall Right sided pneumonia Small left pleural effusion Hyponatremia COPD, chronic Acute hypoxia and hypercapnia respiratory failure Left rib fractures (3rd-10th) s/p traumatic mechanical fall Right sided pneumonia Small left pleural effusion on admission, presents with left sided rib pain after tripping and falling on his left side CT chest (05/13):Mostly mildly displaced fractures involving the left third through 10th ribs. 3.2 cm abdominal aortic aneurysm unchanged. Right lung pneumonia. This should be followed until has cleared to exclude a postobstructive process/underlying mass CXR (05/16): Similar volume loss in the right lung with right lower lobe cons olidation CXR (05/17): Mild bilateral pulmonary opacities, greater on the right, unchanged continue empiric merrem (05/16-) follow blood cultures - NGTD Off BiPAP since yesterday (05/17). Last received precedex 05/16. tolerating 2L NC currently; wean as tolerable. Pulm, General surgery consulted Surgery recommended medical management for the rib fractures continue duonebs, IV steroids Pain control Hyponatremia monitor and replete electrolytes as needed COPD, chronic continue oxygen supplementation as needed. Continue home meds. Duonebs VTE: Lovenox Code: Full Dispo: LTAC, pending approval Time Spent Managing Pts Care (In Minutes): 55
[2024-05-18 09:56] VITALS: BP 129/66
[2024-05-18 10:16] VITALS: O2SAT 90
--- NOTE | 2024-05-18 11:44 | P.DS ---
Admission Date: 05/13/24 Discharge Date: 05/18/24 Disposition: [facility] Discharge Condition: FAIR Reason for Admission: Multiple rib fractures, right sided PNA Consultations: Pulmonology - Dr. Albarado General surgery - Dr. Gamino Brief History of Present Illness: 69yo M, PMH: COPD on 4-5L NC Patient reports tripping over his walker falling on his left side. On evaluation, Marco is extremely uncomfortable, requesting pain medication for his left rib fractures, Vital signs stable, on 3 LNC, gurgling lung sounds. CT CAP reports mildly displaced fractures to left third through tenth ribs.Laboratory evaluation significant for sodium 131, bicarb 35, serum glucose 108. Initial vitals BP 138 / 70; Pulse 90; Resp 14; Temp 98.2; Pulse Ox 96% on [address] CAP reports "Mostly mildly displaced fractures involving the left third through 10th ribs. Right lung pneumonia. This should be followed until has cleared to help exclude a postobstructive process/underlying mass, Small left pleural effusion." CT head/cervical spine reports "No acute intracranial abnormality noted. A cervical fracture is not seen. Mild to moderate anterior subluxation C3 on C4. Significant soft tissue swelling not seen." Marco will be admitted to hospitalist service for further evaluation and treatment, Dr. Albarado consulted. Hospital Course: Problem List: Acute hypoxia and hypercapnia respiratory failure Left rib fractures (3rd-10th) s/p traumatic mechanical fall Right sided pneumonia Small left pleural effusion Hyponatremia COPD, chronic Physician discharge instructions: Patient presented with left sided rib pain, associated with shortness of breath after tripping and falling on his left side. He was found to have multiple mildly displaced left rib fractures (3rd-10th). CT chest/abdomen on admission noted mildly displaced fractures involving the left third through 10th ribs, 3.2 cm abdominal aortic aneurysm (stable), pneumonia of right lung Dr. Gamino, general surgeon was consulted to evaluate and recommended medical management in regards to rib fractures. Patient was started on empiric antibiotic (merrem) to cover pneumonia and had some improvement of his symptoms. 05/16 Patient's breathing was noted to worsen, requiring continuous BiPAP and transferred to ICU. Dr. Albarado, pulm was consulted, added solu-medrol 40mg IV BID 05/16. He has been having gradual, consistent improvement of his respirations, now trials on nasal cannula intermittently yesterday Precedex also stopped 05/17. Repeat xray noted improvement of right sided infiltrate. Patient was feeling better, breathing more comfortably, afebrile without leukocytosis, and was deemed stable to LTAC. Medications: continue antibiotic for 1 week pain medication as tolerated -currently receiving norco 10s and IV dilaudid for breakthrough Follow up: PCP 3-5 days after discharge home Physical Exam: GEN: Alert, oriented, NAD CV: Regular rate and rhythm, no edema Pulm: Nonlabored respirations on 2L NC, mildly diminished bilaterally ABD: soft, nontender, nondistended Neuro: Normal speech, normal affect Vital Signs/Physical Exam: Temp Pulse Resp BP Pulse Ox 97.6 F 75 22 H 129/66 97 05/18/24 00:00 05/18/24 10:00 05/18/24 11:26 05/18/24 10:00 05/18/24 11:26 Laboratory Data at Discharge: WBC 4.20 thou/uL (4.3-10.9) L 05/18/24 04:46 Hgb 10.4 g/dL (13.6-17.9) L 05/18/24 04:46 Hct 31.1 % (39.6-49.0) L 05/18/24 04:46 Plt Count 142 thou/uL (152-406) L 05/18/24 04:46 PT 10.3 SECONDS (9.4-12.5) 05/13/24 12:20 INR 0.98 05/13/24 12:20 APTT 30.4 SECONDS (24.3-36.9) 05/13/24 12:20 Sodium 133 mEq/L (136-145) L 05/18/24 04:46 Potassium 3.6 mEq/L (3.5-5.1) 05/18/24 04:46 BUN 24 mg/dL (7-18) H 05/18/24 04:46 Creatinine 0.32 mg/dL (0.70-1.30) L 05/18/24 04:46 Glucose 147 mg/dL (74-106) H 05/18/24 04:46 Phosphorus 3.0 mg/dL (2.5-4.9) 05/18/24 04:46 Magnesium 2.3 mg/dL (1.6-2.4) 05/18/24 04:46 Total Bilirubin 0.3 mg/dL (0.2-1.0) 05/13/24 12:20 AST 29 U/L (15-37) 05/13/24 12:20 ALT 21 U/L (16-61) 05/13/24 12:20 Alkaline Phosphatase 83 U/L (45-117) 05/13/24 12:20 Home Medications: Acetaminophen [Tylenol*] 650 mg PO Q4HP PRN tab 05/17/24 Albuterol Neb [Proventil 0.083% Neb Soln] 2.5 mg NEB [id number] amp 05/17/24 Arformoterol Tartrate [Brovana] 15 mcg NEB BIDRESP vial.neb 05/17/24 Hydrocodone 10/APAP 325 [[place] 10/325*] 1 tab PO Q4H PRN tab 05/17/24 Ipratropium Neb [Atrovent*] 0.5 mg NEB [id number] amp 05/17/24 Methylpred Na Suc [Solu-Medrol*] 40 mg IV BID vial 05/17/24 Pharmacy Consult 1 ea XX DAILYPRN PRN ea 05/17/24 Physician Discharge Instructions: Physician discharge instructions: Patient presented with left sided rib pain, associated with shortness of breath after tripping and falling on his left side. He was found to have multiple mildly displaced left rib fractures (3rd-10th). CT chest/abdomen on admission noted mildly displaced fractures involving the left third through 10th ribs, 3.2 cm abdominal aortic aneurysm (stable), pneumonia of right lung Dr. Gamino, general surgeon was consulted to evaluate and recommended medical management in regards to rib fractures. Patient was started on empiric antibiotic (merrem) to cover pneumonia and had some improvement of his symptoms. 05/16 Patient's breathing was noted to worsen, requiring continuous BiPAP and transferred to ICU. Dr. Albarado pulm was consulted, added solu-medrol 40mg IV BID 05/16. He has been having gradual, consistent improvement of his respirations, now trials on nasal cannula intermittently yesterday Precedex also stopped 05/17. Repeat xray noted improvement of right sided infiltrate. Patient was feeling better, breathing more comfortably, afebrile without leukocytosis, and was deemed stable to LTAC. Medications: continue antibiotic for 1 week pain medication as tolerated -currently receiving norco 10s and IV dilaudid for breakthrough Follow up: PCP 3-5 days after discharge home Activity: Fall precautions Followup: Darrel Denise MD [Primary Care Provider] - Time spent managing pt's care (in minutes): 45
--- NOTE | 2024-05-18 16:10 | PN ---
Date of Progress Note: 05/18/2024 Diagnosis: Multiple rib fractures, status post fall. Subjective: The patient is doing better. He is tolerating diet. No shortness of breath. No chest pain. At least COPD. Objective: Chest: Bilateral breath sounds. No crepitus. No step-off. Abdomen: Soft and depressi ble. Plan: From the surgical standpoint, continue conservative treatment. Follow up as an outpatient in our office. Follow up also with his new box icer. MARINA/WINSTON Voice ID: [id number] Report ID: [id number]
== END 2024-05-18 15:53 | DRG 183 ==
LOC: ER 10:05 → ERHOLD 15:04 → 2ND 17:45 → 3RD-ICU 05-15 18:54
PROVIDERS: ADMIT Internal Medicine; ATTEND Hospitalist
PROC: 4A033R1 Measurement of Arterial Saturation, Peripheral, Percutaneous Approach (ICD-10-PCS; principal; 2024-05-15)
PROC: 5A09457 Assistance with Respiratory Ventilation, 24-96 Consecutive Hours, Continuous Positive Airway Pressure (ICD-10-PCS; 2024-05-15)
DX: S22.42XA Multiple fractures of ribs, left side, initial encounter for closed fracture (principal); J18.9 Pneumonia, unspecified organism; J96.01 Acute respiratory failure with hypoxia; J96.02 Acute respiratory failure with hypercapnia; E87.1 Hypo-osmolality and hyponatremia; J44.0 Chronic obstructive pulmonary disease with (acute) lower respiratory infection; F03.911 Unspecified dementia, unspecified severity, with agitation; F03.918 Unspecified dementia, unspecified severity, with other behavioral disturbance; F03.92 Unspecified dementia, unspecified severity, with psychotic disturbance; I71.40 Abdominal aortic aneurysm, without rupture, unspecified; K40.90 Unilateral inguinal hernia, without obstruction or gangrene, not specified as recurrent; R29.6 Repeated falls; Z91.81 History of falling; Z99.81 Dependence on supplemental oxygen; Z87.891 Personal history of nicotine dependence; Z79.899 Other long term (current) drug therapy
CPT/HCPCS: 36415; 36600; 70450; 71045; 71250; 72125; 74176; 80048; 80053; 80202; 81001; 82306; 82805; 83605; 83735; 83880; 84100; 84132; 85025; 85610; 85730; 87040; 92526; 92610; 93005; 94010; 94640; 94660; 96365; 96366; 96372; 99285; J1171; J1630; J1650; J1940; J2185; J2919; J3475; J3480; J7040; J7050; J7605; J7613; J7614; J7644